=== PATIENT | male | born 1955 | race Caucasian/White ===

== ENCOUNTER 2020-02-11 08:12 | Outpatient (REF) | payer OTHER, SELFPAY ==
[2020-02-11 09:41] LABS: MANUAL DIFF FLAG NO
[2020-02-11 09:53] LABS: Basophils Absolute Auto 0.1 X10*3/uL (0.0-0.2); Basophils Percent Auto 0.9 % (0-2); Eosinophils Absolute Auto 0.2 X10*3/uL (0.0-0.4); Hematocrit 46.4 % (42-52); Hemoglobin 14.2 g/dl (14.0-18.0); Imm Gran Abs Auto 0.07 X10*3/uL (0.00-0.03); Imm Gran Pct Auto 0.9 % (0.0-0.4); Mean Corpuscular HGB Conc 30.6 g/dl (31.0-36.0); Mean Corpuscular Hemoglobin 24.7 pg (27.0-33.0); Mean Corpuscular Volume 80.6 fL (80-98); Mean Platelet Volume 11.6 fL (9.4-12.4); Monocytes Absolute Auto 0.5 X10*3/uL (0.1-1.2); Monocytes Percent Auto 6.5 % (2-11); Neutrophils Absolute Auto 5.2 X10*3/uL (2.0-8.3); Neutrophils Percent Auto 63.7 % (45-73); Platelet Count 355 X10*3/uL (160-400); Red Blood Count 5.76 X10*6/uL (4.60-5.80); Red Cell Distribution Width 15.9 % (11.0-16.0); White Blood Count 8.1 X10*3/uL (4.8-10.8)
[2020-02-11 10:17] LABS: Glucose Urine UA NEG (NEG); Leukocyte Esterase Urine NEG (NEG); Nitrite Urine NEG (NEG); Urine Blood NEG (NEG); Urine Ketones NEG (NEG); Urine Protein NEG (NEG-TRACE)
[2020-02-11 10:18] LABS: Alanine Aminotransferase 18 U/L (0-40); Albumin Level 4.6 g/dL (3.5-5.0); Alkaline Phosphatase 118 U/L (39-117); Anion Gap 15 (12-20); Aspartate Amino Transferase 18 U/L (5-37); Bilirubin Total 0.4 mg/dL (0.0-1.0); Blood Urea Nitrogen 15 mg/dL (9-16); Calcium 9.5 mg/dL (8.4-10.2); Carbon Dioxide 26 mmol/L (22-29); Chloride 104 mmol/L (96-108); Cholesterol 211 mg/dL; Estimated Glomerular Filt Rate > 60; Glucose Fasting 106 mg/dL (60-99); HDL Cholesterol 64 mg/dL; LDL Cholesterol Calculated 125 mg/dl; Potassium 4.6 mmol/l (3.3-5.1); Sodium 140 mmol/L (135-145); Total Protein 7.6 g/dL (6.5-8.0); Triglycerides 113 mg/dL
[2020-02-11 10:27] LABS: Appearance Urine CLEAR; Color Urine YELLOW
[2020-02-11 10:35] LABS: Estimated Average Glucose 111 mg/dL; Hemoglobin A1c % 5.5 %
[2020-02-11 10:38] LABS: Thyroid Stimulating Hormone 2.11 mIU/mL (0.32-4.0); Vitamin D 25-OH Total 35.8 ng/mL (>30)
[2020-02-11 10:47] LABS: Microalbumin Urine < 5.0 mg/L
[2020-02-11 11:18] LABS: RBC Urine 0 /HPF (0); Squamous Epithelial Cell Urine TRACE /LPF; WBC Urine 0 /HPF (0-4)
== END 2020-02-11 08:13 | disposition home or self-care (01) ==
LOC: HO.LAB 08:12
PROVIDERS: PCP Internal Medicine; Visit Provider Internal Medicine
DX: R79.89 Other specified abnormal findings of blood chemistry (principal)
CPT/HCPCS: 36415; 80053; 80061; 81003; 81015; 82043; 82306; 83036; 84443; 85025

== ENCOUNTER → 2020-09-10 09:25 | Outpatient (BNVA) | payer OTHER, SELFPAY | PROVIDERS: PCP Internal Medicine; Visit Provider Internal Medicine ==

== ENCOUNTER → 2020-09-25 09:37 | Outpatient (REF) | payer OTHER, SELFPAY | LOC: HO.SL 09:37 | PROVIDERS: PCP Internal Medicine; Visit Provider Internal Medicine | DX: G47.33 Obstructive sleep apnea (adult) (pediatric) (principal) | CPT/HCPCS: 95806 ==

== ENCOUNTER 2020-10-13 08:36 | Outpatient (REF) | payer OTHER, SELFPAY ==
[2020-10-13 09:15] LABS: MANUAL DIFF FLAG NO
[2020-10-13 09:21] LABS: Basophils Absolute Auto 0.1 X10*3/uL (0.0-0.2); Basophils Percent Auto 1.1 % (0-2); Eosinophils Absolute Auto 0.3 X10*3/uL (0.0-0.4); Eosinophils Percent Auto 4.4 % (0-4); Hematocrit 45.3 % (42-52); Hemoglobin 14.2 g/dl (14.0-18.0); Imm Gran Abs Auto 0.02 X10*3/uL (0.00-0.03); Imm Gran Pct Auto 0.4 % (0.0-0.4); Lymphocytes Absolute Auto 1.8 X10*3/uL (1.2-4.9); Lymphocytes Percent Auto 31.3 % (20-40); Mean Corpuscular HGB Conc 31.3 g/dl (31.0-36.0); Mean Corpuscular Hemoglobin 24.7 pg (27.0-33.0); Mean Corpuscular Volume 78.6 fL (80-98); Mean Platelet Volume 11.1 fL (9.4-12.4); Monocytes Absolute Auto 0.5 X10*3/uL (0.1-1.2); Monocytes Percent Auto 8.4 % (2-11); Neutrophils Absolute Auto 3.1 X10*3/uL (2.0-8.3); Neutrophils Percent Auto 54.4 % (45-73); Platelet Count 295 X10*3/uL (160-400); Red Blood Count 5.76 X10*6/uL (4.60-5.80); White Blood Count 5.7 X10*3/uL (4.8-10.8)
[2020-10-13 10:29] LABS: Potassium 4.7 mmol/L (3.3-5.1); Sodium 141 mmol/L (135-145)
[2020-10-13 10:30] LABS: Chloride 109 mmol/L (96-108)
[2020-10-13 10:42] LABS: Alanine Aminotransferase 19 U/L (0-40); Albumin Level 4.2 g/dL (3.5-5.0); Alkaline Phosphatase 97 U/L (39-117); Anion Gap 12 (12-20); Aspartate Amino Transferase 21 U/L (5-37); Bilirubin Total 0.6 mg/dL (0.0-1.0); Blood Urea Nitrogen 14 mg/dL (9-16); Calcium 9.1 mg/dL (8.4-10.2); Carbon Dioxide 25 mmol/L (22-29); Cholesterol 189 mg/dL; Estimated Glomerular Filt Rate > 60; Glucose Random 109 mg/dL (60-115); HDL Cholesterol 62 mg/dL; LDL Cholesterol Calculated 107 mg/dl; Total Protein 6.7 g/dL (6.5-8.0); Triglycerides 103 mg/dL
[2020-10-13 12:35] LABS: Prostate Specific Antigen < 0.05 ng/mL (<0.05-4.0)
== END 2020-10-13 08:37 | disposition home or self-care (01) ==
LOC: HO.LAB 08:36
PROVIDERS: PCP Internal Medicine; Visit Provider Internal Medicine Medical Oncology
DX: C61 Malignant neoplasm of prostate (principal); D68.59 Other primary thrombophilia; Z87.09 Personal history of other diseases of the respiratory system
CPT/HCPCS: 36415; 80053; 80061; 84153; 85025

== ENCOUNTER → 2020-11-12 13:13 | Outpatient (BNVA) | payer OTHER, SELFPAY | PROVIDERS: PCP Internal Medicine; Visit Provider Internal Medicine ==

== ENCOUNTER 2021-01-12 10:06 | Outpatient (REF) | payer OTHER, SELFPAY ==
[2021-01-12 10:59] LABS: MANUAL DIFF FLAG NO
[2021-01-12 11:10] LABS: Basophils Absolute Auto 0.1 X10*3/uL (0.0-0.2); Basophils Percent Auto 1.1 % (0-2); Eosinophils Absolute Auto 0.2 X10*3/uL (0.0-0.4); Eosinophils Percent Auto 3.3 % (0-4); Hematocrit 45.1 % (42-52); Hemoglobin 14.5 g/dl (14.0-18.0); Imm Gran Abs Auto 0.03 X10*3/uL (0.00-0.03); Imm Gran Pct Auto 0.5 % (0.0-0.4); Lymphocytes Absolute Auto 1.9 X10*3/uL (1.2-4.9); Lymphocytes Percent Auto 28.4 % (20-40); Mean Corpuscular HGB Conc 32.2 g/dl (31.0-36.0); Mean Corpuscular Hemoglobin 25.4 pg (27.0-33.0); Mean Platelet Volume 11.3 fL (9.4-12.4); Monocytes Absolute Auto 0.6 X10*3/uL (0.1-1.2); Neutrophils Absolute Auto 3.8 X10*3/uL (2.0-8.3); Neutrophils Percent Auto 57.7 % (45-73); Platelet Count 311 X10*3/uL (160-400); Red Blood Count 5.71 X10*6/uL (4.60-5.80); White Blood Count 6.6 X10*3/uL (4.8-10.8)
[2021-01-12 11:32] LABS: Alanine Aminotransferase 23 U/L (0-40); Albumin Level 4.4 g/dL (3.5-5.0); Alkaline Phosphatase 105 U/L (39-117); Anion Gap 13 (12-20); Aspartate Amino Transferase 23 U/L (5-37); Bilirubin Total 0.4 mg/dL (0.0-1.0); Blood Urea Nitrogen 13 mg/dL (9-16); Calcium 9.5 mg/dL (8.4-10.2); Carbon Dioxide 23 mmol/L (22-29); Chloride 108 mmol/L (96-108); Estimated Glomerular Filt Rate > 60; Glucose Random 105 mg/dL (60-115); Potassium 5.3 mmol/L (3.3-5.1); Sodium 139 mmol/L (135-145); Total Protein 7.3 g/dL (6.5-8.0)
[2021-01-12 11:52] LABS: Prostate Specific Antigen < 0.05 ng/mL (<0.05-4.0)
== END 2021-01-12 10:07 | disposition home or self-care (01) ==
LOC: HO.LAB 10:06
PROVIDERS: PCP Internal Medicine; Visit Provider Internal Medicine Medical Oncology
DX: Z12.5 Encounter for screening for malignant neoplasm of prostate (principal); C61 Malignant neoplasm of prostate
CPT/HCPCS: 36415; 80053; 84153; 85025

== ENCOUNTER 2021-09-12 07:55 | Outpatient (REF) | payer OTHER, SELFPAY ==
[2021-09-12 08:20] LABS: MANUAL DIFF FLAG NO
[2021-09-12 08:39] LABS: Basophils Absolute Auto 0.1 X10*3/uL (0.0-0.2); Eosinophils Absolute Auto 0.2 X10*3/uL (0.0-0.4); Eosinophils Percent Auto 3.7 % (0-4); Hematocrit 45.2 % (42.0-52.0); Hemoglobin 14.4 g/dl (14.0-18.0); Imm Gran Abs Auto 0.03 X10*3/uL (0.00-0.03); Imm Gran Pct Auto 0.5 % (0.0-0.4); Lymphocytes Absolute Auto 1.8 X10*3/uL (1.2-4.9); Lymphocytes Percent Auto 28.3 % (20-40); Mean Corpuscular HGB Conc 31.9 g/dl (31.0-36.0); Mean Corpuscular Hemoglobin 25.4 pg (27.0-33.0); Mean Corpuscular Volume 79.7 fL (80.0-98.0); Mean Platelet Volume 11.5 fL (9.4-12.4); Monocytes Absolute Auto 0.5 X10*3/uL (0.1-1.2); Monocytes Percent Auto 8.6 % (2-11); Neutrophils Absolute Auto 3.6 x10*3/uL (2.0-8.3); Neutrophils Percent Auto 57.9 % (45-73); Platelet Count 259 X10*3/uL (160-400); Red Blood Count 5.67 X10*6/uL (4.60-5.80); White Blood Count 6.3 X10*3/uL (4.8-10.8)
[2021-09-12 09:04] LABS: Alanine Aminotransferase 22 U/L (0-40); Albumin Level 4.1 g/dL (3.5-5.0); Alkaline Phosphatase 86 U/L (39-117); Anion Gap 10 (12-20); Aspartate Amino Transferase 18 U/L (5-37); Bilirubin Total 0.3 mg/dL (0.0-1.0); Blood Urea Nitrogen 16 mg/dL (9-16); Calcium 9.6 mg/dL (8.4-10.2); Carbon Dioxide 26 mmol/L (22-29); Chloride 109 mmol/L (96-108); Estimated Glomerular Filt Rate > 60; Glucose Random 110 mg/dL (60-115); Sodium 140 mmol/L (135-145); Total Protein 6.8 g/dL (6.5-8.0)
[2021-09-12 09:43] LABS: Prostate Specific Antigen < 0.05 ng/mL (<0.05-4.0)
== END 2021-09-12 07:56 | disposition home or self-care (01) ==
LOC: HO.LAB 07:55
PROVIDERS: PCP Internal Medicine; Visit Provider Internal Medicine Medical Oncology
DX: Z12.5 Encounter for screening for malignant neoplasm of prostate (principal); C61 Malignant neoplasm of prostate; K21.9 Gastro-esophageal reflux disease without esophagitis; I45.10 Unspecified right bundle-branch block
CPT/HCPCS: 36415; 80053; 84153; 85025

== ENCOUNTER 2022-03-15 08:23 | Outpatient (REF) | payer OTHER, SELFPAY ==
[2022-03-15 08:35] LABS: MANUAL DIFF FLAG NO
[2022-03-15 09:11] LABS: Basophils Absolute Auto 0.1 X10*3/uL (0.0-0.2); Basophils Percent Auto 0.9 % (0-2); Eosinophils Absolute Auto 0.2 X10*3/uL (0.0-0.4); Eosinophils Percent Auto 3.3 % (0-4); Hematocrit 47.1 % (42.0-52.0); Hemoglobin 14.6 g/dl (14.0-18.0); Imm Gran Abs Auto 0.04 X10*3/uL (0.00-0.03); Imm Gran Pct Auto 0.6 % (0.0-0.4); Lymphocytes Absolute Auto 2.1 X10*3/uL (1.2-4.9); Lymphocytes Percent Auto 31.3 % (20-40); Mean Corpuscular Hemoglobin 24.6 pg (27.0-33.0); Mean Corpuscular Volume 79.3 fL (80.0-98.0); Mean Platelet Volume 11.5 fL (9.4-12.4); Monocytes Absolute Auto 0.5 X10*3/uL (0.1-1.2); Monocytes Percent Auto 7.8 % (2-11); Neutrophils Absolute Auto 3.7 x10*3/uL (2.0-8.3); Neutrophils Percent Auto 56.1 % (45-73); Platelet Count 270 X10*3/uL (160-400); Red Blood Count 5.94 X10*6/uL (4.60-5.80); White Blood Count 6.6 X10*3/uL (4.8-10.8)
[2022-03-15 10:13] LABS: Prostate Specific Antigen < 0.10 ng/mL (<0.05-4.0)
== END 2022-03-15 08:24 | disposition home or self-care (01) ==
LOC: HO.LAB 08:23
PROVIDERS: PCP Internal Medicine; Visit Provider Internal Medicine Medical Oncology
DX: C61 Malignant neoplasm of prostate (principal)
CPT/HCPCS: 36415; 84153; 85025

== ENCOUNTER 2022-04-06 09:31 | Outpatient (REF) | payer OTHER, SELFPAY ==
[2022-04-06 09:53] LABS: MANUAL DIFF FLAG NO
[2022-04-06 10:35] LABS: Basophils Absolute Auto 0.1 X10*3/uL (0.0-0.2); Basophils Percent Auto 1.1 % (0-2); Eosinophils Absolute Auto 0.3 X10*3/uL (0.0-0.4); Eosinophils Percent Auto 4.2 % (0-4); Hematocrit 44.9 % (42.0-52.0); Hemoglobin 14.2 g/dl (14.0-18.0); Imm Gran Abs Auto 0.05 X10*3/uL (0.00-0.03); Imm Gran Pct Auto 0.8 % (0.0-0.4); Lymphocytes Absolute Auto 1.6 X10*3/uL (1.2-4.9); Lymphocytes Percent Auto 25.4 % (20-40); Mean Corpuscular HGB Conc 31.6 g/dl (31.0-36.0); Mean Corpuscular Hemoglobin 24.7 pg (27.0-33.0); Mean Corpuscular Volume 78.1 fL (80.0-98.0); Mean Platelet Volume 11.1 fL (9.4-12.4); Monocytes Absolute Auto 0.6 X10*3/uL (0.1-1.2); Neutrophils Absolute Auto 3.7 x10*3/uL (2.0-8.3); Neutrophils Percent Auto 59.5 % (45-73); Platelet Count 312 X10*3/uL (160-400); Red Blood Count 5.75 X10*6/uL (4.60-5.80); Red Cell Distribution Width 15.3 % (11.0-16.0); White Blood Count 6.2 X10*3/uL (4.8-10.8)
[2022-04-06 15:25] LABS: Folate 6.7 ng/mL (> or = 4.0); Vitamin B12 349 pg/mL (200-900)
[2022-04-06 15:54] LABS: Alanine Aminotransferase 21 U/L (0-40); Albumin Level 4.3 g/dL (3.5-5.0); Alkaline Phosphatase 98 U/L (39-117); Anion Gap 14 (12-20); Aspartate Amino Transferase 22 U/L (5-37); Bilirubin Total 0.4 mg/dL (0.0-1.0); Blood Urea Nitrogen 16 mg/dL (9-16); Calcium 9.4 mg/dL (8.4-10.2); Carbon Dioxide 25 mmol/L (22-29); Chloride 109 mmol/L (96-108); Cholesterol 192 mg/dL; Estimated Glomerular Filt Rate > 60; Glucose Fasting 112 mg/dL (60-99); HDL Cholesterol 58 mg/dL; LDL Cholesterol Calculated 117 mg/dl; Potassium 5.5 mmol/L (3.3-5.1); Sodium 142 mmol/L (135-145); Thyroid Stimulating Hormone 1.03 uIU/mL (0.32-4.0); Triglycerides 85 mg/dL; Vitamin D 25-OH Total 25.1 ng/mL (>30)
== END 2022-04-06 09:32 | disposition home or self-care (01) ==
LOC: HO.LAB 09:31
PROVIDERS: PCP Internal Medicine; Visit Provider Internal Medicine
DX: M17.0 Bilateral primary osteoarthritis of knee (principal); G47.33 Obstructive sleep apnea (adult) (pediatric); E66.09 Other obesity due to excess calories
CPT/HCPCS: 36415; 80053; 80061; 82306; 82607; 82746; 84443; 85025

== ENCOUNTER 2022-05-17 09:18 | Outpatient (REF) | payer OTHER, SELFPAY ==
[2022-05-17 10:37] LABS: Anion Gap 14 (12-20); Blood Urea Nitrogen 19 mg/dL (9-16); Calcium 9.4 mg/dL (8.4-10.2); Carbon Dioxide 27 mmol/L (22-29); Chloride 103 mmol/L (96-108); Estimated Glomerular Filt Rate > 60; Glucose Random 152 mg/dL (60-115); Potassium 4.2 mmol/L (3.3-5.1); Sodium 140 mmol/L (135-145)
[2022-05-17 10:51] LABS: Erythrocyte Sedimentation Rate 5 MM/HR (0-15)
== END 2022-05-17 09:19 | disposition home or self-care (01) ==
LOC: HO.LAB 09:18
PROVIDERS: PCP Internal Medicine; Visit Provider Internal Medicine
DX: I10 Essential (primary) hypertension (principal)
CPT/HCPCS: 36415; 80048; 85652

== ENCOUNTER 2022-09-07 10:26 | Outpatient (REF) | payer MEDICARE, OTHER, SELFPAY ==
[2022-09-07 10:38] LABS: MANUAL DIFF FLAG NO
[2022-09-07 11:36] LABS: Basophils Absolute Auto 0.1 X10*3/uL (0.0-0.2); Basophils Percent Auto 1.1 % (0-2); Eosinophils Absolute Auto 0.2 X10*3/uL (0.0-0.4); Eosinophils Percent Auto 2.6 % (0-4); Hematocrit 45.9 % (42.0-52.0); Hemoglobin 14.5 g/dl (14.0-18.0); Imm Gran Abs Auto 0.04 X10*3/uL (0.00-0.03); Imm Gran Pct Auto 0.6 % (0.0-0.4); Lymphocytes Absolute Auto 1.6 X10*3/uL (1.2-4.9); Lymphocytes Percent Auto 24.1 % (20-40); Mean Corpuscular HGB Conc 31.6 g/dl (31.0-36.0); Mean Corpuscular Hemoglobin 24.7 pg (27.0-33.0); Mean Corpuscular Volume 78.1 fL (80.0-98.0); Mean Platelet Volume 11.4 fL (9.4-12.4); Monocytes Absolute Auto 0.6 X10*3/uL (0.1-1.2); Monocytes Percent Auto 9.7 % (2-11); Neutrophils Percent Auto 61.9 % (45-73); Platelet Count 309 X10*3/uL (160-400); Red Blood Count 5.88 X10*6/uL (4.60-5.80); Red Cell Distribution Width 15.7 % (11.0-16.0); White Blood Count 6.4 X10*3/uL (4.8-10.8)
[2022-09-07 11:58] LABS: Alanine Aminotransferase 31 U/L (0-40); Albumin Level 4.3 g/dL (3.5-5.0); Alkaline Phosphatase 89 U/L (39-117); Anion Gap 14 (12-20); Aspartate Amino Transferase 28 U/L (5-37); Bilirubin Total 0.3 mg/dL (0.0-1.0); Blood Urea Nitrogen 15 mg/dL (9-16); Calcium 9.6 mg/dL (8.4-10.2); Carbon Dioxide 26 mmol/L (22-29); Chloride 106 mmol/L (96-108); Estimated Glomerular Filt Rate > 60; Glucose Random 85 mg/dL (60-115); Potassium 4.6 mmol/L (3.3-5.1); Sodium 141 mmol/L (135-145)
[2022-09-07 12:23] LABS: Prostate Specific Antigen < 0.10 ng/mL (<0.05-4.0)
== END 2022-09-07 10:27 | disposition home or self-care (01) ==
LOC: HO.LAB 10:26
PROVIDERS: PCP Internal Medicine; Visit Provider Internal Medicine Medical Oncology
DX: C61 Malignant neoplasm of prostate (principal); K21.9 Gastro-esophageal reflux disease without esophagitis; E66.9 Obesity, unspecified; Z87.09 Personal history of other diseases of the respiratory system; Z12.5 Encounter for screening for malignant neoplasm of prostate
CPT/HCPCS: 36415; 80053; 84153; 85025

== ENCOUNTER 2022-09-27 10:59 | Emergency (ER) | payer MEDICARE, OTHER, SELFPAY ==
--- NOTE | ~2022-09-27 | CT_ITS ---
EXAMINATION: CT HEAD WITHOUT CONTRAST CLINICAL INFORMATION: Fall. Blood thinning medicine. COMPARISON: None available. TECHNIQUE: Contiguous axial imaging was performed from the skull base to vertex without intravenous administration of contrast. This CT examination was performed using dose optimization techniques as appropriate, variously including the following: *Automated exposure control *Adjustment of mA and/or kV according to patient size (this includes techniques or standardized protocols for targeted exams where dose is matched to indication/reason for exam; i.e. extremities or head) *Use of iterative reconstruction technique DLP: 686 mGy-cm FINDINGS: No evidence of an extra-axial collection. No evidence of intra-axial or extra-axial hemorrhage. The ventricles and extra-axial CSF spaces are appropriate. Wise-white matter differentiation is normal. No mass, mass effect or infarct. No skull fracture. Soft tissue opacification of the bilateral mastoid air cells, left greater than right.. Middle ears and paranasal sinuses are clear. CT/CT head/brain wo IV con IMPRESSION: No acute findings. Soft tissue opacification of the bilateral mastoid air cells.
[2022-09-27 11:02] VITALS: BP 196/81; PULSE 63; RESP 19; TEMP 36.6; O2SAT 98; BMI 30.8
--- NOTE | 2022-09-27 11:08 | ED.HEATRA ---
HPI - Head Injury General Chief complaint: Head Injury Stated complaint: Fall T-1/Head inj on thinners Time Seen by Provider: 09/27/22 13:12 Source: patient Mode of arrival: ambulatory Limitations: no limitations History of Present Illness HPI Narrative: Was the emergency room complaining of slight headache after sustaining a fall yesterday. 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 Patient states he has been having mild headaches. Patient called his primary care physician and because he is on Eliquis, he was instructed to come to the emergency room for further evaluation. Patient denies nausea vomiting diarrhea, no vision changes. Related Data Home Medications Medication Instructions Recorded Confirmed apixaban 5 mg tablet 5 mg PO BID 09/10/20 09/27/22 cetirizine 10 mg tablet 10 mg PO DAILY 09/10/20 09/27/22 cholecalciferol (vitamin D3) 25 25 mcg PO DAILY 09/10/20 09/27/22 mcg (1,000 unit) capsule fluticasone 100 mcg-salmeterol 50 1 ea PO BID 09/10/20 09/27/22 mcg/dose blistr powdr for inhalation montelukast 10 mg tablet 10 mg PO DAILY 09/10/20 09/27/22 celecoxib 200 mg capsule (Celebrex) 200 mg PO DAILY 09/27/22 09/27/22 hydrochlorothiazide 50 mg tablet 50 mg PO QAM 09/27/22 09/27/22 multivitamin 1 tab PO DAILY 09/27/22 09/27/22 omeprazole 20 mg tablet,delayed 20 mg PO DAILY 09/27/22 09/27/22 release Allergies Allergy/AdvReac Type Severity Reaction Status Date / Time No Known Allergies Allergy Verified 09/27/22 11:02 [No Known Allergies*] Review of Systems Review of Systems: Constitutional : No Weight loss, No Fever, No Chills, No Night Sweats, No Fatigue, No Malaise ENT/Mouth : No Hearing loss, No Ear Pain, No Nasal Congestion, No Sinus Pain, No Hoarseness, No sore throat, No Rhinorrhea, No Swallowing Difficulty Eyes: No Eye Pain, No Swelling, No Redness, No Foreign Body, No Discharge, No Vision Changes Cardiovascular : No Chest Pain, No SOB, No Dyspnea on Exertion, No Orthopnea, No Edema, No Palpitations Respiratory : No Cough, No Sputum, No Wheezing, No Smoke Exposure, No Dyspnea Gastrointestinal : No Nausea, No Vomiting, No Diarrhea, No Constipation, No abdominal Pain, No Hematochezia, No Melena Genitourinary : no irregular bleeding, No Dysuria, No Urinary Frequency, No Hematuria, No Urinary Incontinence, No Urgency, No Flank Pain, No Urinary Flow Changes, No Hesitancy Musculoskeletal : No joint pain, No Myalgias, No Joint Swelling Skin : Small abrasion/scratch to the right side of the head/tenriism No Skin Lesions, No rash Neuro : No Weakness, No Numbness, No Paresthesias, No Loss of Consciousness, No Dizziness, complaining of mild Headache Psych : No Anxiety/Panic, No Depression, No SI/HI/AH/VH, No Social Issues, Heme/Lymph: No Bruising, No Bleeding,No Lymphadenopathy Endocrine : No Polyuria, No Polydipsia, No Temperature Intolerance PMFSH Past Medical History Medical History Allergic rhinitis Asthma CHRISTA (obstructive sleep apnea) Physical Exam Vital Signs: Vital Signs: Last Vital Signs Temp 98 F 09/27/22 11:02 Pulse 63 09/27/22 11:02 Resp 19 09/27/22 11:02 BP 196/81 H 09/27/22 11:02 Pulse Ox 98 09/27/22 11:02 O2 Del Method Room Air 09/27/22 11:02 BMI result Body Mass Index 30.8 Const: Other: Appearance: Alert. Oriented X3. No acute distress. Eyes: Pupils equal, round and reactive to light. ENT: Pharynx normal. Neck: Normal inspection. Neck supple. No lymph nodes noted. No crepitus CVS: Normal heart rate and rhythm. Pulses normal. Normal S1 and S2 Respiratory: No respiratory distress. Breath sounds normal. No Wheezing. No rales Abdomen: Soft and nontender. No rigidity. No distention. Skin: 2 cm scratch to the right tenriism, being controlled, superficial, Skin warm and dry. Normal skin color. Normal skin turgor. Extremities: No lower extremity edema. No Lacerations. No Rash Neuro: Oriented X 3. No motor deficit. No sensory deficit. Moving all extremities. No slurred speech. 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 Denies neck pain or LOC Ambulating w/steady gait Head CT ordered Full HPI, ROS and PE to be performed by primary ED provider. Medical Decision Making Medical Decision Making [facility] Narrative: -my interpretation of CT scan of the head: No intracranial bleed -patient states he has a very mild headache, declined any pain medication, states he feels fairly well. -I discussed with the patient and likely he has a mild concussion Radiology Impression Discussion of test interpretation with radiology: I have reviewed the radiologist's reading. Radiologist Impression: FINDINGS: No evidence of an extra-axial collection. No evidence of intra-axial or extra-axial hemorrhage. The ventricles and extra-axial CSF spaces are appropriate. Wise-white matter differentiation is normal. No mass, mass effect or infarct. No skull fracture. Soft tissue opacification of the bilateral mastoid air cells, left greater than right.. Middle ears and paranasal sinuses are clear. ? CT/CT head/brain wo IV con IMPRESSION: No acute findings. Soft tissue opacification of the bilateral mastoid air cells. Discharge Plan Discharge Clinical Impression: Concussion, Fall Patient Disposition: Home, Self-Care Instructions: Concussion (ED) Additional Instructions: Please follow-up with your primary care physician tomorrow. If you have any worsening or new symptoms, please return to the emergency room or call 911 Prescriptions: No Action multivitamin Tablet 1 tab PO DAILY celecoxib [Celebrex] 200 mg Capsule 200 mg PO DAILY hydrochlorothiazide 50 mg tablet 50 mg PO QAM omeprazole 20 mg Tablet,Delayed Release (Dr/Ec) 20 mg PO DAILY cetirizine 10 mg tablet 10 mg PO DAILY Eliquis 5 mg tablet 5 mg PO BID montelukast 10 mg tablet 10 mg PO DAILY fluticasone propion-salmeterol 100-50 mcg/dose blister with device 1 ea PO BID cholecalciferol (vitamin D3) 25 mcg (1,000 unit) capsule 25 mcg PO DAILY
--- NOTE | 2022-09-27 13:13 | PHA.MEDREC ---
Pharmacy Consult ? Medication Reconciliation Pharmacy has completed the medication reconciliation. List sent from Dr Francisco office.
[2022-09-27 13:25] VITALS: BP 147/92; PULSE 54; RESP 18; TEMP 36.4; O2SAT 98
--- NOTE | 2022-09-27 13:34 | PC.NURSE ---
patient a&ox3, pt states he fell yesterday and pcp requested he come in because he was on thinners, pt had a ct while waiting in the [facility], pt states he has a mild headache 2/10 which is relieved when he takes po medication at home. pt was seen/evaluated by provider and being discharged.
== END 2022-09-27 13:36 | disposition home or self-care (01) ==
LOC: HO.ED 13:26
PROVIDERS: Emergency Provider Emergency Medicine; PCP Internal Medicine
DX: S06.0X0A Concussion without loss of consciousness, initial encounter (principal); W01.198A Fall on same level from slipping, tripping and stumbling with subsequent striking against other object, initial encounter; Y93.79 Activity, other specified sports and athletics; Y92.89 Other specified places as the place of occurrence of the external cause; Y99.8 Other external cause status; R51.9 Headache, unspecified
CPT/HCPCS: 70450; 99284

== ENCOUNTER 2022-11-25 11:00 | Outpatient (RCR) | payer MEDICARE, OTHER, SELFPAY | END 2023-02-11 11:33 | disposition home or self-care (01) | LOC: HO.PT 11:00 | PROVIDERS: PCP Internal Medicine; Visit Provider Orthopaedic Surgery | DX: Z98.890 Other specified postprocedural states (principal) | CPT/HCPCS: 97110; 97140; 97161; 97530 ==

== ENCOUNTER 2022-12-22 07:37 | Outpatient (REF) | payer MEDICARE, OTHER, SELFPAY ==
[2022-12-22 07:58] LABS: MANUAL DIFF FLAG NO
[2022-12-22 08:20] LABS: Basophils Absolute Auto 0.1 X10*3/uL (0.0-0.2); Basophils Percent Auto 1.2 % (0-2); Eosinophils Absolute Auto 0.2 X10*3/uL (0.0-0.4); Eosinophils Percent Auto 2.8 % (0-4); Hematocrit 46.2 % (42.0-52.0); Hemoglobin 15.1 g/dl (14.0-18.0); Imm Gran Abs Auto 0.02 X10*3/uL (0.00-0.03); Imm Gran Pct Auto 0.3 % (0.0-0.4); Lymphocytes Absolute Auto 1.8 X10*3/uL (1.2-4.9); Lymphocytes Percent Auto 26.3 % (20-40); Mean Corpuscular HGB Conc 32.7 g/dl (31.0-36.0); Mean Corpuscular Hemoglobin 25.1 pg (27.0-33.0); Mean Corpuscular Volume 76.9 fL (80.0-98.0); Mean Platelet Volume 10.8 fL (9.4-12.4); Monocytes Absolute Auto 0.6 X10*3/uL (0.1-1.2); Monocytes Percent Auto 8.8 % (2-11); Neutrophils Absolute Auto 4.1 x10*3/uL (2.0-8.3); Neutrophils Percent Auto 60.6 % (45-73); Platelet Count 290 X10*3/uL (160-400); Red Blood Count 6.01 X10*6/uL (4.60-5.80); Red Cell Distribution Width 15.5 % (11.0-16.0); White Blood Count 6.8 X10*3/uL (4.8-10.8)
[2022-12-22 09:01] LABS: Alanine Aminotransferase 30 U/L (0-40); Albumin Level 4.1 g/dL (3.5-5.0); Alkaline Phosphatase 82 U/L (39-117); Anion Gap 13 (12-20); Aspartate Amino Transferase 30 U/L (5-37); Bilirubin Total 0.3 mg/dL (0.0-1.0); Blood Urea Nitrogen 15 mg/dL (9-16); Calcium 9.4 mg/dL (8.4-10.2); Carbon Dioxide 26 mmol/L (22-29); Chloride 105 mmol/L (96-108); Cholesterol 222 mg/dL (<200); Estimated Glomerular Filt Rate > 60; Glucose Fasting 110 mg/dL (60-99); HDL Cholesterol 57 mg/dL (>40); LDL Cholesterol Calculated 144 mg/dL (<100); Potassium 3.8 mmol/L (3.3-5.1); Sodium 140 mmol/L (135-145); Triglycerides 105 mg/dL (<150)
[2022-12-22 09:22] LABS: Prostate Specific Antigen < 0.10 ng/mL (<0.05-4.0)
== END 2022-12-22 07:38 | disposition home or self-care (01) ==
LOC: HO.LAB 07:37
PROVIDERS: Internal Medicine; PCP Internal Medicine Medical Oncology; Visit Provider Internal Medicine Medical Oncology
DX: Z12.5 Encounter for screening for malignant neoplasm of prostate (principal); C61 Malignant neoplasm of prostate; E66.3 Overweight; I10 Essential (primary) hypertension; J45.20 Mild intermittent asthma, uncomplicated; K21.9 Gastro-esophageal reflux disease without esophagitis
CPT/HCPCS: 36415; 80053; 80061; 84153; 85025

== ENCOUNTER 2023-06-20 07:44 | Outpatient (REF) | payer MEDICARE, OTHER, SELFPAY ==
[2023-06-20 08:03] LABS: MANUAL DIFF FLAG NO
[2023-06-20 08:41] LABS: Basophils Absolute Auto 0.1 X10*3/uL (0.0-0.2); Eosinophils Absolute Auto 0.4 X10*3/uL (0.0-0.4); Eosinophils Percent Auto 3.9 % (0-4); Hemoglobin 14.9 g/dl (14.0-18.0); Imm Gran Abs Auto 0.04 X10*3/uL (0.00-0.03); Imm Gran Pct Auto 0.4 % (0.0-0.4); Lymphocytes Absolute Auto 2.1 X10*3/uL (1.2-4.9); Lymphocytes Percent Auto 23.3 % (20-40); Mean Corpuscular HGB Conc 31.7 g/dl (31.0-36.0); Mean Corpuscular Hemoglobin 24.7 pg (27.0-33.0); Mean Corpuscular Volume 77.8 fL (80.0-98.0); Mean Platelet Volume 11.8 fL (9.4-12.4); Monocytes Absolute Auto 0.7 X10*3/uL (0.1-1.2); Monocytes Percent Auto 7.2 % (2-11); Neutrophils Absolute Auto 5.8 x10*3/uL (2.0-8.3); Neutrophils Percent Auto 64.2 % (45-73); Platelet Count 278 X10*3/uL (160-400); Red Blood Count 6.04 X10*6/uL (4.60-5.80); Red Cell Distribution Width 16.2 % (11.0-16.0)
[2023-06-20 09:25] LABS: Alanine Aminotransferase 25 U/L (0-40); Albumin Level 4.2 g/dL (3.5-5.0); Alkaline Phosphatase 84 U/L (39-117); Anion Gap 13 (12-20); Aspartate Amino Transferase 24 U/L (5-37); Bilirubin Total 0.3 mg/dL (0.0-1.0); Blood Urea Nitrogen 15 mg/dL (9-16); Calcium 9.5 mg/dL (8.4-10.2); Carbon Dioxide 29 mmol/L (22-29); Chloride 104 mmol/L (96-108); Cholesterol 202 mg/dL (<200); Estimated Glomerular Filt Rate > 60; Glucose Fasting 115 mg/dL (60-99); HDL Cholesterol 61 mg/dL (>40); LDL Cholesterol Calculated 126 mg/dL (<100); Potassium 3.9 mmol/L (3.3-5.1); Sodium 142 mmol/L (135-145); Total Protein 7.3 g/dL (6.5-8.0); Triglycerides 76 mg/dL (<150)
[2023-06-20 09:47] LABS: Prostate Specific Antigen < 0.10 ng/mL (<0.05-4.0)
== END 2023-06-20 07:45 | disposition home or self-care (01) ==
LOC: HO.LAB 07:44
PROVIDERS: Absent Provider Internal Medicine; PCP Internal Medicine; Referring Provider Physician Assistant; Visit Provider Internal Medicine Medical Oncology
DX: I10 Essential (primary) hypertension (principal); E78.00 Pure hypercholesterolemia, unspecified; C61 Malignant neoplasm of prostate; E66.3 Overweight; Z12.5 Encounter for screening for malignant neoplasm of prostate
CPT/HCPCS: 36415; 80053; 80061; 84153; 85025

== ENCOUNTER 2023-11-11 08:35 | Outpatient (REF) | payer MEDICARE, OTHER, SELFPAY ==
[2023-11-11 08:52] LABS: MANUAL DIFF FLAG NO
[2023-11-11 09:31] LABS: Basophils Absolute Auto 0.1 X10*3/uL (0.0-0.2); Basophils Percent Auto 1.2 % (0-2); Eosinophils Absolute Auto 0.3 X10*3/uL (0.0-0.4); Eosinophils Percent Auto 3.6 % (0-4); Hematocrit 48.8 % (42.0-52.0); Hemoglobin 15.7 g/dl (14.0-18.0); Imm Gran Abs Auto 0.04 X10*3/uL (0.00-0.03); Imm Gran Pct Auto 0.5 % (0.0-0.4); Lymphocytes Absolute Auto 1.9 X10*3/uL (1.2-4.9); Lymphocytes Percent Auto 25.4 % (20-40); Mean Corpuscular HGB Conc 32.2 g/dl (31.0-36.0); Mean Corpuscular Hemoglobin 25.2 pg (27.0-33.0); Mean Corpuscular Volume 78.2 fL (80.0-98.0); Mean Platelet Volume 11.7 fL (9.4-12.4); Monocytes Absolute Auto 0.6 X10*3/uL (0.1-1.2); Monocytes Percent Auto 8.5 % (2-11); Neutrophils Absolute Auto 4.5 x10*3/uL (2.0-8.3); Neutrophils Percent Auto 60.8 % (45-73); Platelet Count 281 X10*3/uL (160-400); Red Blood Count 6.24 X10*6/uL (4.60-5.80); Red Cell Distribution Width 16.8 % (11.0-16.0); White Blood Count 7.4 X10*3/uL (4.8-10.8)
[2023-11-11 10:30] LABS: Alanine Aminotransferase 27 U/L (0-40); Albumin Level 4.4 g/dL (3.5-5.0); Alkaline Phosphatase 90 U/L (39-117); Anion Gap 15 (12-20); Aspartate Amino Transferase 31 U/L (5-37); Bilirubin Total 0.6 mg/dL (0.0-1.0); Blood Urea Nitrogen 14 mg/dL (9-16); Calcium 9.6 mg/dL (8.4-10.2); Carbon Dioxide 26 mmol/L (22-29); Chloride 104 mmol/L (96-108); Cholesterol 245 mg/dL (<200); Estimated Glomerular Filt Rate > 60; Glucose Fasting 107 mg/dL (60-99); HDL Cholesterol 59 mg/dL (>40); LDL Cholesterol Calculated 153 mg/dL (<100); Potassium 4.6 mmol/L (3.3-5.1); Sodium 140 mmol/L (135-145); Total Protein 7.8 g/dL (6.5-8.0); Triglycerides 168 mg/dL (<150)
[2023-11-11 10:45] LABS: Vitamin D 25-OH Total 54.4 ng/mL (>30)
[2023-11-11 11:31] LABS: Prostate Specific Antigen < 0.10 ng/mL (<0.05-4.0); Vitamin B12 1109 pg/mL (200-900)
== END 2023-11-11 08:36 | disposition home or self-care (01) ==
LOC: HO.LAB 08:35
PROVIDERS: PCP Internal Medicine; Visit Provider Internal Medicine Medical Oncology
DX: C61 Malignant neoplasm of prostate (principal); K21.9 Gastro-esophageal reflux disease without esophagitis; I45.10 Unspecified right bundle-branch block; E66.9 Obesity, unspecified; D68.59 Other primary thrombophilia; E55.9 Vitamin D deficiency, unspecified; E53.8 Deficiency of other specified B group vitamins; Z12.5 Encounter for screening for malignant neoplasm of prostate
CPT/HCPCS: 36415; 80053; 80061; 82306; 82607; 84153; 85025

== ENCOUNTER 2024-02-14 07:37 | Outpatient (REF) | payer MEDICARE, OTHER, SELFPAY ==
[2024-02-14 07:53] LABS: MANUAL DIFF FLAG NO
[2024-02-14 08:34] LABS: Basophils Absolute Auto 0.1 X10*3/uL (0.0-0.2); Eosinophils Absolute Auto 0.2 X10*3/uL (0.0-0.4); Eosinophils Percent Auto 3.5 % (0-4); Hematocrit 46.2 % (42.0-52.0); Hemoglobin 14.8 g/dl (14.0-18.0); Imm Gran Abs Auto 0.02 X10*3/uL (0.00-0.03); Imm Gran Pct Auto 0.3 % (0.0-0.4); Lymphocytes Absolute Auto 1.6 X10*3/uL (1.2-4.9); Lymphocytes Percent Auto 28.2 % (20-40); Mean Corpuscular Hemoglobin 25.2 pg (27.0-33.0); Mean Corpuscular Volume 78.7 fL (80.0-98.0); Mean Platelet Volume 11.5 fL (9.4-12.4); Monocytes Absolute Auto 0.5 X10*3/uL (0.1-1.2); Monocytes Percent Auto 8.1 % (2-11); Neutrophils Absolute Auto 3.4 x10*3/uL (2.0-8.3); Neutrophils Percent Auto 58.9 % (45-73); Platelet Count 276 X10*3/uL (160-400); Red Blood Count 5.87 X10*6/uL (4.60-5.80); Red Cell Distribution Width 15.7 % (11.0-16.0); White Blood Count 5.8 X10*3/uL (4.8-10.8)
[2024-02-14 09:26] LABS: Alanine Aminotransferase 33 U/L (0-40); Albumin Level 4.2 g/dL (3.5-5.0); Alkaline Phosphatase 82 U/L (39-117); Anion Gap 13 (12-20); Aspartate Amino Transferase 29 U/L (5-37); Bilirubin Total 0.5 mg/dL (0.0-1.0); Blood Urea Nitrogen 16 mg/dL (9-16); Calcium 9.4 mg/dL (8.4-10.2); Carbon Dioxide 27 mmol/L (22-29); Chloride 107 mmol/L (96-108); Cholesterol 190 mg/dL (<200); Estimated Glomerular Filt Rate 59; Glucose Fasting 112 mg/dL (60-99); HDL Cholesterol 61 mg/dL (>40); LDL Cholesterol Calculated 113 mg/dL (<100); Potassium 4.2 mmol/L (3.3-5.1); Sodium 143 mmol/L (135-145); Triglycerides 82 mg/dL (<150)
[2024-02-14 09:57] LABS: Prostate Specific Antigen < 0.10 ng/mL (<0.05-4.0)
== END 2024-02-14 07:38 | disposition home or self-care (01) ==
LOC: HO.LAB 07:37
PROVIDERS: PCP Internal Medicine; Visit Provider Internal Medicine Medical Oncology
DX: C61 Malignant neoplasm of prostate (principal); E66.9 Obesity, unspecified; Z12.5 Encounter for screening for malignant neoplasm of prostate
CPT/HCPCS: 36415; 80053; 80061; 84153; 85025

== ENCOUNTER 2024-05-02 10:27 | Outpatient (AMB) | payer MEDICARE, OTHER, SELFPAY ==
--- NOTE | 2024-05-02 10:40 | MHC.PC.OV ---
Vital Signs 05/02/24 10:47 Height 5 ft 5.25 in Weight 197 lb BMI 32.5 BP 106/62 Blood Pressure Location Rt brachial Pulse 50 Pulse Source Pulse Oximeter Temp 97.2 F Pulse Oximetry (%) 98 Intake Visit Reasons: pain in left ear by jaw Intake Note: her for pain in left ear and jaw area has tried saline drops and that has helped sometimes hard to ear Allergies No Known Allergies [No Known Allergies*] Allergy (Verified 05/02/24 11:09) Medication List - Last Reconciled 05/02/24 by George Rodriguez MD albuterol sulfate 90 mcg/actuation 1 inh inhalation QID PRN apixaban (Eliquis) 5 mg PO BID celecoxib (Celebrex) 200 mg PO DAILY cholecalciferol (vitamin D3) 25 mcg PO DAILY fluticasone propion-salmeterol 100-50 mcg/dose 1 ea PO BID fluticasone propionate 50 mcg/actuation (Flonase Allergy Relief) 1 spray intranasal DAILY hydrochlorothiazide 50 mg PO QAM loratadine-pseudoephedrine 10-240 mg ER (Claritin-D 24 Hour) 1 tab PO DAILY montelukast 10 mg PO DAILY multivitamin 1 tab PO DAILY omeprazole 20 mg PO DAILY [facility] Medical History (Updated 05/02/24 @ 11:10 by George Rodriguez MD) Left leg DVT Prostate cancer Allergic rhinitis Asthma CHRISTA (obstructive sleep apnea) Social History Alcohol intake: current Alcohol type: beer Physical exam (Primary Care) Vital Signs: Last Vital Signs Temp 97.2 F 05/02/24 10:47 Pulse 50 05/02/24 10:47 BP 106/62 05/02/24 10:47 Pulse Ox 98 05/02/24 10:47 BMI result Body Mass Index 32.5 Coding Level of Care Code New Pt Level 4 (21978) Complex EM visit Add On G2211 Diagnoses Prostate cancer C61 Left leg DVT I82.402 Allergic rhinitis J30.9 Assessment & Plan Assessment & Plan (1) Prostate cancer: Code(s): C61 - Malignant neoplasm of prostate Category: Medical Plan: Patient underwent a prostatectomy and radiation. PSA will be checked. (2) Left leg DVT: Code(s): I82.402 - Acute embolism and thrombosis of unspecified deep veins of left lower extremity Category: Medical Plan: Pt had two episodes of DVT in the same extremity. Sees Dr Miller. Anticoagulation for an indefinite period. (3) Allergic rhinitis: Code(s): J30.9 - Allergic rhinitis, unspecified Category: Medical Plan: No further abx needed. Patient was given a script for SIngulair, Claritin D and flonase. To use the medications consistently. Plan History of Present Illness The patient is a 68-year-old male presenting with complaints of nasal congestion and mandibular pain. The congestion has persisted for approximately one and a half months, prompting calls to the previous provider and resulting in prescriptions of a Z pack and unspecified antibiotics, neither of which alleviated symptoms. The patient also reports pain beneath the mandible, initially suspected to be dental in origin. A dental x-ray found no infection. The patient takes regular allergy medications, including Singulair. Congestion persists despite management, including a saline rinse, although the patient does not use nasal spray. 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 Concerning past medical history, the patient underwent radiation therapy for prostate diagnosed in 2018, with ongoing bowel changes as a sequela. The patient also has a history of knee issues leading to arthroscopic surgeries on both knees. 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 - No reports of substance use. Review of Systems - Respiratory: Reports ongoing nasal congestion. - Musculoskeletal: Reports pain in the mandible area. - Hematologic: No discussion of bleeding or clotting issues beyond DVT. Physical Exam General: Cooperative and healthy appearing Nutritional Appearance: Well nourished Orientation/consciousness: Patient oriented x3 Limitations: No limitations Head: Normal to inspection General: Appearance normal, both eyes and all related structures Neck: Normal visual inspection Chest: Normal palpation of entire chest wall Respiratory: Normal respiratory effort Neurology: Patient oriented x3 Results Plan - Investigate and evaluate persistent nasal congestion. - Address mandibular pain by considering further dental or ENT consultation if pain persists. - Continue management for DVT with Apixaban. - Ensure adherence to allergy management regimen, consider additional options if congestion persists. - Regular follow-up with oncology for post-radiation therapy colorectal cancer surveillance. Patient was informed and verbally consented to the use of an ambient scribe for clinic note documentation during this visit. Discussion Notes During the consultation, I discussed the ongoing nasal congestion and mandibular pain with the patient, emphasizing the importance of monitoring these symptoms and considering additional diagnostic steps if current treatments do not result in improvement. I reaffirmed the need for lifelong anticoagulation to prevent future thrombotic events related to previous deep vein thrombosis. We reviewed his current medication regimen and discussed possible modifications to improve symptom control. Follow-ups with specialists such as a laborer rags and oncologist were acknowledged, and we considered the patient's past medical experiences to guide ongoing care. Patient Instructions - Continue taking Apixaban as prescribed for DVT. - Utilize allergy medications diligently and consider nasal sprays as previously untried. - Monitor symptoms of nasal congestion and mandibular pain; seek further advice if no improvement. - Follow up with scheduled oncology and hematology appointments. - Report any new or worsening symptoms promptly. Medications: New fluticasone propionate 50 mcg/actuation (Flonase Allergy Relief) administer into each nostril 1 spray intranasal DAILY 9.9 mL 1RF loratadine-pseudoephedrine 10-240 mg ER (Claritin-D 24 Hour) 1 tab PO DAILY 90 tabs 0RF
[2024-05-02 10:47] VITALS: BP 106/62; PULSE 50; TEMP 36.2; O2SAT 98; BMI 32.5
== END 2024-05-02 11:07 | disposition home or self-care (01) ==
LOC: HO.HMCSH 10:27
PROVIDERS: PCP Internal Medicine; Visit Provider Internal Medicine
DX: C61 Malignant neoplasm of prostate (principal); I82.402 Acute embolism and thrombosis of unspecified deep veins of left lower extremity; J30.9 Allergic rhinitis, unspecified

== ENCOUNTER → 2024-05-02 10:27 | Outpatient (BNVA) | payer MEDICARE, OTHER, SELFPAY | PROVIDERS: PCP Internal Medicine; Visit Provider Internal Medicine | DX: C61 Malignant neoplasm of prostate (principal); I82.402 Acute embolism and thrombosis of unspecified deep veins of left lower extremity; J30.9 Allergic rhinitis, unspecified | CPT/HCPCS: 99202 ==

== ENCOUNTER 2024-06-22 07:55 | Outpatient (REF) | payer MEDICARE, OTHER, SELFPAY ==
--- OUTSIDE RECORDS SUMMARY | 2024-06-22 08:01 | XMS_ITS | Patient Health Record ---
[facility] Organization [facility] Address [address] [place] [address] Care Team Providers Care Hr Specialist Name Role Phone Samuel Francisco MD Primary Care Provider Unavail able Leander Priest Unavailable [phone] Mahnaz Houston Unavailable [phone] Allergies No Known Allergies Reason For Referral No Information Medications Medication SIG (Take, Route, Frequency, Duration) Notes Start Date End Date Status Vitamin B12 Active Custom Orthotics as directed 08/04/2022 Active Physical Therapy . . . 2-3x/week for 3-4 weeks 08/04/2022 Active hydroCHLOROthiazide 50 MG 1 tablet in th e morning Orally once a day Active Vitamin D Active Montelukast Sodium 10 MG 1 tablet Orally Once a day for 30 day(s) Active Cetirizine HCl 10 MG 1 tablet Orally Once a day for 30 day(s) Active Night Splint AFO - L1930 as directed 08/04/2022 Active eliquis 5 mg twice a day Activ e Multivitamin - 1 tablet Orally Once a day for 30 day(s) Active Advair Diskus 100-50 MCG/ACT 1 puff Inha lation Twice a day Active Albuterol Sulfate ER Active Social History Tobacco Use: Social History Observation Description Date Details (start date - stop date) Never Smoker NA - NA Tobacco Use/Smoking Question Answer Notes Are you a: nonsmoker Additional Findings: Tobacco Non-User Current no n-smoker Alcohol Screen Question Answer Notes Did you have a drink contain ing alcohol in the past year? Yes How often did you have a dri nk containing alcohol in the past year? 4 or more times a week (4 points) Points 4 Interpretation Positive Tobacco use other than smoking: Question Answer Notes Are you an other tobacco user? No Problems Problem Type SNOMED Code ICD Code Onset Dates Problem Status W/U Status Risk Notes Problem Localized, primary osteoarthritis of the ankle and/or foot ([id number]) Primary osteoarthrit is, right ankle and foot (M19.071) Active confirmed Vital Signs Blood pressure diastolic 71 mm Hg 04/20/2024 Height 5ft 6in in 04/20/2024 Blood pressure systolic 128 mm Hg 04/20/2024 Weight 192 lbs 04/20/2024 BMI 30.99 kg/m2 04/20/2024 Encounters Encounter Location Date Provider Diagnosis [facility] [address] 03/30/2024 Mahnaz Houston Pain in right foot M79.671 ; Metatarsalgia, right foot M77.41 ; Flat foot [pes planus] (acquired), right foot M21.41 and Flat foot [pes planus] (acquired), left foot M21.42 [facility] [address] 04/20/2024 Mahnaz Houston Pain in right foot M79.671 ; Metatarsalgia, right foot M77.41 ; Flat foot [pes planus] (acquired), right foot M21.41 and Flat foot [pes planus] (acquired), left foot M21.[address] [address] 02/16/2024 Leander Priest [facility] [address] 03/30/2024 Mahnaz Houston Assessments Encounter Date Diagnosis (ICD Code) Assessment Notes Treatment Notes Treatment Clinical Notes Section Notes 03/30/2024 Pain in right foot (ICD-10 - M79.671) 03/30/2024 Metatarsalgia, right foot (ICD-10 - M77.41) 04/20/2024 Pain in right foot (ICD-10 - M79.671) 04/20/2024 Metatarsalgia, right foot (ICD-10 - M77.41) 03/30/2024 Flat foot [pes planus] (acquired), right foot (ICD-10 - M21.41) 03/30/2024 Flat foot [pes planus] (acquired), left foot (ICD-10 - M21.42) 04/20/2024 Flat foot [pes planus] (acquired), right foot (ICD-10 - M21.41) 04/20/2024 Flat foot [pes planus] (acquired), left foot (ICD-10 - M21.42) Plan Of Treatment Pending Test Test Name Order Date X ray : Foot, right 3V 08/04/2022 Insurance Providers Payer Name Payer Address Payer Phone Subscriber Number Group Number Insured Name Patient Relationship to Insured Coverage Start Date Coverage End Date Medicare [employer] [address] [place] [address] [id number] Hadley Majano Self - patient is the insured [address] [place] [address] [address] [place] [address] [phone] [id number] Hadley Majano Self - patient is the insured Medical (General) History Medical History History ICD Code Back,Hip,and Knee pain Cancer Cataracts covid-19 Diverticulosis Vascular phlebitis (clots) Chicken pox High Potassium Surgical History Surgery Date(Month/Year) Prostate removal 2018 Knee replacement 2019 Knee replacement 2020
--- OUTSIDE RECORDS SUMMARY | 2024-06-22 08:01 | XMS_ITS ---
Author [facility] [place] Address [address] [place] [address] Care Team Providers Care Telecasting Engineer Name Role Phone Samuel Francisco MD Primary Care Provider Unavail able Leander Priest Unavailable [phone] Mahnaz Houston Unavailable [phone] REASON FOR VISIT Dispense orthotics, Foot pain Medications Medication SIG (Take, Route, Frequency, Duration) Notes Start Date End Date Status Vitamin B12 Active Custom Orthotics as directed 08/04/2022 Active Physical Therapy . . . 2-3x/week for 3-4 weeks 08/04/2022 Active Night Splint AFO - L1930 as directed 08/04/2022 Active eliquis 5 mg twice a day Activ e Montelukast Sodium 10 MG 1 tablet Orally Once a day for 30 day(s) Active Cetirizine HCl 10 MG 1 tablet Orally Once a day for 30 day(s) Active Multivitamin - 1 tablet Orally Once a day for 30 day(s) Active Advair Diskus 100-50 MCG/ACT 1 puff Inha lation Twice a day Active Albuterol Sulfate ER Active hydroCHLOROthiazide 50 MG 1 tablet in e morning Orally once a day Active Vitamin D Active Social History Tobacco Use: Social History [...] Are you an other tobacco user? No Vital Signs Height 5ft 6in in 04/20/2024 Weight 192 lbs 04/20/2024 BMI 30.99 kg/m2 04/20/2024 Blood pressure systolic 128 mm Hg 04/20/19 25 Blood pressure diastolic 71 mm Hg 025 Encounters Encounter Location Date Provider Diagnosis [facility] [place] [address] [address] 04/20/2024 Mahnaz Houston Pain in right foot M79.671 ; Metatarsalgia, right foot M77.41 ; Flat foot [pes planus] (acquired), right foot M21.41 and Flat foot [pes planus] (acquired), left foot M21.42 Assessments Encounter Date Diagnosis (ICD Code) Assessment Notes Treatment Notes Treatment Clinical Notes Section Notes 04/20/2024 Pain in right foot (ICD-10 - M79.671) 04/20/2024 Metatarsalgia, right foot (ICD-10 - M77.41) 04/20/2024 Flat foot [pes planus] (acquired), right foot (ICD-10 - M21.41) 04/20/2024 Flat foot [pes planus] (acquired), left foot (ICD-10 - M21.42) Plan Of Treatment Next Appt Details Follow Up: prn, Reason: Progress Notes * Dov TILLMANOB: 8 (68 yo M)Acc No.[id number]:04/20/2024 Progress Note Patient:?Hadley TILLMAN Provider:?Mahnaz Houston DPM :1955???Age:68 Y???Sex:Male Juan Pablo e:04/20/2024 Address:[address] [place] [address], [id number] Pcp:Samuel Francisco MD Subjective: * Chief Complaints: * ???Dispense orthoticsFoot pa in * HPI: ???Foot Pain:?Nature:??aching, pressure.?Location?Bottom, Forefoot, Right .?Onset/Cause:?unknown.?Course:?worse.?Aggrevated:?any pressure, standing, walking.?Treatments:?custom inserts (10 years old), new pair dispensed today.? * ROS:?General/Constitutional:?Nausea?denies.?Vomiting?denies.?Hunger Thirst?denies.?Loss appetite?denies.?Chills?denies.?Fatigue?denies.?Fever?denies.?Night Sweats?denies.?Unexplained weight loss?denies.?Unexplained weight gain?denies.?HEENTM:?Dentures?denies.?Dizziness?denies.?Glasses/contacts?denies.?Retinopathy?de nies.?Blurred/double vision?denies.?TMJ?denies.?Discharge/drainage?denies.?Implants?denies.?Sore throat?denies.?Dental implants?denies.?Hard of hearing ?denies.?Difficulty chewing/swallowing/speaking?denies.?Nose bleeds?denies.?Sore mouth?denies.?Respiratory:?On Oxygen?denies.?Pneumonia/pleurisy?denies.?Bronchitis?denies.?Emphysema?denies.?C oughing?denies.?Cough blood?denies.?Shortness of breath?denies.?Wheezing?denies.?Cardiovascular:?Pacemaker?denies.?MVP?denies.?WPW?denies.?CHF?denies.?Heart attack?denies.?Septal defect?denies.?Rapid beat?denies.?Chest pain ?denies.?Atrial Fib.?denies.?Murmur/Palpitations?denies.?Gastrointestinal:?Hemorrhoids?denies.?Stomach/Abdominal pain?denies.?Dark blood stool?denies.?Irritable bowel ?denies.?Constipation?denies.?Diarrhea?denies.?Hematology:?Swelling?denies.?Clots?denies.?Varicose Veins?denies.?Bruising?denies.?Bleeding problem?denies.?Genitourinary:?Blood urine?denies.?Frequent/Painfu/urination/bladder control?denies.?Kidney stones?denies.?Infection (UTI)?denies.?Nephropathy?denies.?sex trans dis (STD)?denies.?Prostate?denies.?Musculoskeletal:?Hammertoes?denies.?Bunions?denies.?Back Pain?denies.?Muscle Cramps/ Resting?denies.?Muscle cramps / walking?denies.?Generalized aches and pains?denies.?Weakness?denies.?Integ.:?[place]?denies.?Scars?denies.?Corns/calluses?denies.?Ingrown nails?denies.?Painful nails?denies.?Open Sores?denies.?Rashes?denies.?Neurologic:?Difficulty sleeping?denies.?Brain disorder?denies.?Numbness?denies.?Balance trouble?denies.?Confusion?denies.?Fainting/blackouts?denies.?Tingling?denies.?Tr emors?denies.? * Medical History:? * Surgical History:?Prostate r emoval 2018Knee replacement 2019Knee replacement 2020 * Hospitalization/Major Diagno stic Procedure:?No Hospitalization History. * Family History:?Mother: dece ased.?Father: unknown.?Spouse: alive.? * Social History:?Tobacco Use:?Tobacco Use/Smoking?Are you a:?nonsmoker ?Additional Findings: Tobacco Non-User?Current non-smoker ?Tobacco use other than smoking?Are you an other tobacco user??No ???Drugs/Alcohol:?Drugs?Have you used drugs other than those for medical reasons in the past 12 months??Yes THC ?Alcohol Screen?Did you have a drink containing alcohol in the past year??Yes ?How often did you have a drink containing alcohol in the past year??4 or more times a week (4 points) ?Points?4 ?Interpretation?Positive ???Miscellaneous:?Caffeine: yes, frequency:, 2-3 cups per day. ?Children: yes, 4. ?Exercise: yes, walking, basketball ref, football. ?Marital status: . 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 * Medications:?TakingVitamin B 12 Vitamin D hydroCHLOROthiazide 50 MG Tablet 1 tablet in the morning Orally , Notes to Pharmacist: once a dayAlbuterol Sulfate ER Advair Diskus 100-50 MCG/ACT Aerosol Powder Breath Activated 1 puff Inhalation Twice a day Multivitamin - Tablet 1 tablet Orally Once a day Cetirizine HCl 10 MG Tablet 1 tablet Orally Once a day Montelukast Sodium 10 MG Tablet 1 tablet Orally Once a day eliquis 5 mg Tablet , Notes to Pharmacist: twice a dayNight Splint AFO - L1930 as directed Physical Therapy . . . . 2-3x/week Custom Orthotics as directed Medication List reviewed and reconciled with the patientTaking Vitamin B12 Taking Vitamin D Taking hydroCHLOROthiazide 50 MG Tablet 1 tablet in the morning Orally , Notes to Pharmacist: once a dayTaking Albuterol Sulfate ER Taking Advair Diskus 100-50 MCG/ACT Aerosol Powder Breath Activated 1 puff Inhalation Twice a day Taking Multivitamin - Tablet 1 tablet Orally Once a day Taking Cetirizine HCl 10 MG Tablet 1 tablet Orally Once a day Taking Montelukast Sodium 10 MG Tablet 1 tablet Orally Once a day Taking eliquis 5 mg Tablet , Notes to Pharmacist: twice a dayTaking Night Splint AFO - L1930 as directed Taking Physical Therapy . . . . 2-3x/week Taking Custom Orthotics as directed Medication List reviewed and reconciled with the patient * Allergies:?yes[Allergies Shara ified] Objective: * Vitals:?Ht:5ft 6in, Wt:192, BMI:30.99, Shoe size:9.5, BP:128/71mm Hg, Ht-cm: 167.64 cm, Wt-k.09 kg. * Examination: ???Neurological: ?SENSORY:?Neurological exam reveals intact sensorium, pain sensation normal, vibration sensation intact, pinprick sensation is normal in the lower extremities, Pt denies, anesthesia, burning, paresthesia, tingling, B/L.?TINEL'S COMPRESSION:?Negative tarsal tunnel, delbert pedis, and medial calcaneal nerves B/L.?BABINSKI REFLEX:?absent.?Neuroma Pain: ?PALPATION:?No interspace pain noted on palpation.?Vascular: ?DP PULSES (B):?2/4, B/L.?PT PULSES (B):?2/4, B/L.?CAPILLARY FILL TIME:?3 secs. per digit, B/L.?TROPHIC CONDITION-TEXTURE/ELASTICITY/TURGOR/HAIR GROWTH (B):?normal, B/L.?TEMPERTURE GRADIENT (C):?warm to cool, proximal to distal, B/L.?PIGMENTATION:?normal, B/L.?EDEMA (C):?no edema.?TELANGECTASIA:?absent.?VARICOSITIES:?absent.?Orthopedic: ?MUSCLE STRENGTH:?5/5 all groups in a symmetrical fashion , B/L.?GAIT ABNORMALITY:?pronated, abducted, B/L.?FOOT MORPHOLOGY:?Pes Planus structure.?General Examination: ?GENERAL APPEARANCE:?Reveals a pleasant, alert, well nourished, well- developed, well hydrated individual, who demonstrates proper attention to hygiene/body habitus, and is in no acute distress, Pt serves as own historian for office visit today.?ORIENTED:?person, place, and time.? Assessment: * Assessment: 1.?Pain in right foot - M79. 671 (Primary)???2.?Metatarsalgia, right foot - M77.41???3.?Flat foot [pes planus] (acquired), right foot - M21.41???4.?Flat foot [pes planus] (acquired), left foot - M21.42??? Plan: * Treatment: * Procedure Codes:? * Preventive Medicine:? ??Counseling:?Discussion:?-13: Office or other outpatient visit for the evaluation and management of an established patient, which required a medically appropriate history and/or examination and LOW level of DECISION MAKING for: 1 STABLE ACUTE UNCOMPLICATED PROBLEM, 2 OR MORE MINOR PROBLEMS, OR 1 STABLE CHRONIC PROBLEM, THAT POSE(S) A LOW RISK FOR MORBIDITY/MORTALITY. The visit on the day of the encounter encompassed interpreting the data and educating the patient as to the nature of their condition, treatment options available according to their individual PMH, meds, allergies, and overall health/living conditions, as well as any potential risks or complications that may occur from a failure to adhere to, and participate in, the recommended course of therapy. The discussion included a complete verbal, and/or written explanation of the examination results, any x-rays taken, the proposed diagnosis, and outline of the treatment plan. A schedule for future care needs was also explained. The patient verbalized an understanding of the instructions at this time and agreed to be an active participant in their treatment. If the patient should think of any questions or concerns after the visit, I have encouraged the patient to call the office.?Orthotic Dispensing:?The patient presents today for fitting and dispensing of orthotics. The inserts were checked against the prescription and found to be accurate. They were properly fitted to the patients feet and shoes in both weight-bearing and non-weight bearing attitudes. The patient was instructed to gradually increase the amount of time they are wearing the orthoses, starting with one hour the first day and thereon progressively increasing the amount of time used by one hours per day until they are comfortable to be worn all day and with all activities. They were asked to call the office if any signs of skin irritation were noted including redness, blistering or callous formation. The patient verbally indicated a full understanding of all the above information.? * Follow Up:?prn * Images: * Sign off status: Completed true * Provider:?Mahnaz Houston DPM Date:?0 04/20/2024 Generated for Farzad patiño/Chente/Lori on:?06/22/2024 08:01 AM EST History and Physical Notes * HPI (History of Present Illness) Category Sub-Category Detail Notes Category Not es Foot Pain Aggrevated: any pressure, standing, walk ing Onset/Cause: unknown Course: worse Nature: aching, pressure Treatments: custom inserts (10 y ears old), new pair dispensed today Location Bottom, Forefoot, Ri ght Examination Category Sub-Category Detail Notes Category Not es Neuroma Pain PALPATION: No interspace pain noted on palpation Neurological SENSORY: Neurological exa m reveals intact sensorium, pain sensation normal, vibration sensation intact, pinprick sensation is normal in the lower extremities, Pt denies, anesthesia, burning, paresthesia, tingling, B/L BABINSKI REFLEX: absent TINEL'S COMPRESSION: Negative tarsal moises calvin, delbert pedis, and medial calcaneal nerves B/L Orthopedic GAIT ABNORMALITY: pronated, abducted, B/L FOOT MORPHOLOGY: Pes Planus structure MUSCLE STRENGTH: 5/5 all groups in a symmetrical fashion , B/L General Examination GENERAL APPEARANCE: Reveals a pleasant, alert, well nourished, well-developed, well hydrated individual, who demonstrates proper attention to hygiene/body habitus, and is in no acute distress, Pt serves as own historian for office visit today ORIENTED: person, place, and t neil Vascular DP PULSES (B): 2/4, B/L PT PULSES (B): 2/4, B/L CAPILLARY FILL TIME: 3 secs. per digit, B/L TEMPERTURE GRADIENT (C): warm to cool, p roximal to distal, B/L TROPHIC CONDITION-TEXTURE/ELASTICITY/TURGOR/HAIR GROWTH (B): normal, B/L EDEMA (C): no edema TELANGECTASIA: absent VARICOSITIES: absent PIGMENTATION: normal, B/L
--- OUTSIDE RECORDS SUMMARY | 2024-06-22 08:01 | XMS_ITS ---
Author Organization Samuel Quiñones III, MD Address [address] [place] [address] ZENOBIA Rangel [place] [address] Care Team Providers Care Breakfast And Room Attendant Name Role Phone Samuel Francisco MD Primary Care Provider Unavail able aSmuel Quiñones Unavailable [phone] Allergies Allergen (clinical drug ingredient) Drug/Non Drug Allergy documented on EMR Reaction Allergy Type Onset Date Status No Known Drug Allergy Unknown Drug Allergy Active REASON FOR VISIT Prostate cancer, Asthma, Thrombophilia, GERD, Arthritis of both knees, History of DVT, Thalassemia minor, Obesity Medications Medication SIG (Take, Route, Frequency, Duration) Notes Start Date End Date Status Cetirizine HCl 10 MG 1 tablet Orally Onc e a day Active Albuterol Sulfate HFA 108 (9 0 Base) MCG/ACT 2 puffs as needed Inhalation every 6 hrs Active Advair Diskus 100-50 MCG/ACT 1 puff Inha lation Twice a day Active hydroCHLOROthiazide 50 MG TAKE 1 TABLET BY MOUTH EVERY DAY IN THE MORNING Oral Active Vitamin B12 100 MCG as directed Orally Active Montelukast Sodium 10 MG 1 tablet Orally Once a day Active Vitamin D 50 MCG (2000 UT) 1 tablet Oral ly Once a day Active Eliquis 5 MG as directed Orally twice a day Active Social History Tobacco Use: Social History Observation Description Date Details (start date - stop date) Never Smoker NA - NA Sex Assigned At : Social History Observation Description Sex Assigned At Male Tobacco Use/Smoking Question Answer Notes Patient is a nonsmoker Additional Findings: Tobacco Non-User Current no n-smoker Problems Problem Type SNOMED Code ICD Code Onset Dates Problem Status W/U Status Risk Notes Problem 18055809 Thalassemia trait (D56.3) Active confirmed His hematocrit and mean cell volume and RBC are stable. No treatment is indicated. Vital Signs Temperature 97.2 degrees Fahrenheit 02/16/20 24 Blood pressure systolic 135 mm Hg 02/16/20 24 Blood pressure diastolic 76 mm Hg 024 Heart Rate 54 /min 02/16/2024 Height 66 in 02/16/2024 Weight 192 lbs 02/16/2024 BMI 30.99 kg/m2 02/16/2024 Encounters Encounter Location Date Provider Diagnosis Samuel Quiñones III, MD [address] [place] [address] [place] [address] 02/16/2024 Samuel Quiñones Prostate cancer C61 ; Obesity (BMI 30.0-34.9) E66.9 ; History of asthma Z87.09 ; GERD without esophagitis K21.9 ; Thalassemia trait D56.3 and Thrombophilia D68.59 Assessments Encounter Date Diagnosis (ICD Code) Assessment Notes Treat ment Notes Treatment Clinical Notes 02/16/2024 Prostate cancer (ICD-10 - C61) He remains in remission. There is no sign of recurrent prostate cancer at this time. His PSA is not detectable. 02/16/2024 Obesity (BMI 30.0-34.9) (ICD-10 - E66.9) He has lost 4 pounds in his body mass index is now 30.99. We have discussed his weight loss strategy and diet and nutrition. We made a plan to lose weight at a rate of one half of a pound per week. 02/16/2024 History of asthma (ICD-10 - Z87.09) He has had no asthma recently. He will notify me if he doesn't use his inhaler as he has been instructed. 02/16/2024 GERD without esophagitis (ICD-10 - K21.9) His reflux is well controlled with medications. No change in his regimen was needed. 02/16/2024 Thalassemia trait (ICD-10 - D56.3) His hematocrit and mean cell volume and RBC are stable. No treatment is indicated. 02/16/2024 Thrombophilia (ICD-10 - D68.59) No change in his medications was made. He has had no episodes of bleeding or thrombosis. Plan Of Treatment Medication Medication Name Sig Start Date Stop Date Notes Cetirizine HCl 10 MG 1 tablet Orally Onc e a day Albuterol Sulfate HFA 108 (9 0 Base) MCG/ACT 2 puffs as needed Inhalation every 6 hrs Advair Diskus 100-50 MCG/ACT 1 puff Inha lation Twice a day hydroCHLOROthiazide 50 MG TAKE 1 TABLET BY MOUTH EVERY DAY IN THE MORNING Oral Vitamin B12 100 MCG as directed Orally Montelukast Sodium 10 MG 1 tablet Orally Once a day Vitamin D 50 MCG (2000 UT) 1 tablet Oral ly Once a day Eliquis 5 MG as directed Orally t wice a day Pending Test Test Name Order Date PROFILE, FASTING (COMPREHENSIVE METABOLI C) 02/16/2024 PSA, TOTAL 02/16/2024 CBC WITH AUTO DIFF 02/16/2024 Lipid Panel 02/16/2024 Next Appt Details Follow Up: 6 Months, Annual exam scheduled for June 13 at 3:00, Reason: OV, Annual exam Provider Name:Samuel Quiñones, 08/13/2024 10:30:00 AM, [address] [place] [address] , [place] [id number], [place], [id number], Progress Notes * Hadley TILLMAN RDOB: [birth year] (68 yo M)Acc No.[id number]:02/16/2024 Progress Notes Patient:?PRIMO Sundar Provider:?Samuel Quiñones MD :1955???Age:68 Y???Sex:Male Juan Pablo e:02/16/2024 Address:[address] [place] [address] KWABENA HERNANDEZ [id number] Pcp:Samuel Francisco MD Subjective: * Chief Complaints: * ???Prostate cancerAsthmaThro mbophiliaGERDArthritis of both kneesHistory of DVTThalassemia minorObesity * HPI: ???COVID-19 Screening:?Questions?Have you experienced fever, chills, cough, sore throat, shortness of breath, difficulty breathing, muscle aches, loss of taste or smell??No ?Have you been exposed to the virus within the last 10 days??No ?Have you travelled internationally in the last 10 days??No ?Have you been exposed to COVID-19 in the past??Yes ???:?The patient, a 68-year-old male, presented for a routine visit. He reported a weight loss of 4 lbs since his last visit in October, which he attributed to cutting down on beer and increasing his water intake. He also mentioned experiencing pain in his shoulder, which he believes is due to arthritis and a torn rotator cuff. He has been managing the pain with a combination of ibuprofen and Tylenol, but only takes it when the pain is severe due to his use of Eliquis. The patient also mentioned having incontinence, which he has accepted as a permanent condition. Blood Sugar Level is 112.There was no sign of bleeding or recurrent prostate cancer on today's examination. Blood work that was done February 14, 2024 showed white count 5.8 hematocrit 46.2 mean cell volume 78.7 platelets 276 glucose 112 BUN 16 creatinine 1.23 total cholesterol 192 triglycerides 82 HDL 61 LDL 113 PSA less than 0.1. * ROS:?General/Constitutional:?pain?Both knees.?Chills?denies.?Fatigue?admits.?Fever?denies.?Admits?Weight loss.?ENT:?Decreased hearing?denies.?Respiratory:?Cough?denies.?Cardiovascular:?Chest pain with exertion?denies.?Dyspnea on exertion?denies.?Shortness of breath?denies.?Gastrointestinal:?Constipation?occasional.?Decreased appetite?denies.?Diarrhea?denies.?Heartburn?denies.?Nausea?denies.?Rectal bleeding?denies.?Vomiting?denies.?Hematology:?bruising?denies.?petechiae?denies.?Swollen glands?none have been noted.?Genitourinary:?Frequent urination?at night.?Musculoskeletal:?Muscle aches?denies.?Painful joints?denies.?Sciatica?denies.?Weakness?denies.?Skin:?Itching?denies.?Rash?denies.?Skin lesion(s)?denies.?Neurologic:?Difficulty speaking?denies.?Dizziness?denies.?Headache?denies.?Low back pain?denies.?Psychiatric:?Depressed mood?denies.? * Medical History:? * Surgical History:?radical pr ostatectomy with sentinel nodes, [facility], Dr. Allen 10/05/2017negative colonoscopy, [facility], Dr. Samuel Roe core biopsy of prostate, Dr. Barahona 08/2017tonsillectomy left knee surgery 11/2019right knee surgery 05/2020No history * Hospitalization/Major Diagno stic Procedure:?No history * Family History:?Father: unkn own.?Mother: 58 yrs, congestive heart failure, asthma, thyroid disease.?Spouse: alive 46 yrs, hypertension,migraine headaches,, anxiety.?1 brother(s) - healthy. 1 son(s) , 3 daughter(s) - healthy. .? His brother had bariatric surgery. His children are healthy. He is not aware of any family history of mental illness or substance use disorder, or addictions. * Social History:?Tobacco Use:?Tobacco Use/Smoking?Patient is a?nonsmoker ?Additional Findings: Tobacco Non-User?Current non-smoker ???He has been to Desirae for 23 years. He has two children with her and two from a previous marriage. He has worked at the [employer] for 24 years. * Medications:?TakingVitamin B 12 100 MCG Tablet as directed Orally Cetirizine HCl 10 MG Tablet 1 tablet Orally Once a day Advair Diskus 100-50 MCG/ACT Aerosol Powder Breath Activated 1 puff Inhalation Twice a day Albuterol Sulfate HFA 108 (90 Base) MCG/ACT Aerosol Solution 2 puffs as needed Inhalation every 6 hrs Eliquis 5 MG Tablet as directed Orally twice a day Vitamin D 50 MCG (1999 UT) Tablet 1 tablet Orally Once a day Montelukast Sodium 10 MG Tablet 1 tablet Orally Once a day hydroCHLOROthiazide 50 MG Tablet TAKE 1 TABLET BY MOUTH EVERY DAY IN THE MORNING Oral Medication List reviewed and reconciled with the patientTaking Vitamin B12 100 MCG Tablet as directed Orally Taking Cetirizine HCl 10 MG Tablet 1 tablet Orally Once a day Taking Advair Diskus 100-50 MCG/ACT Aerosol Powder Breath Activated 1 puff Inhalation Twice a day Taking Albuterol Sulfate HFA 108 (90 Base) MCG/ACT Aerosol Solution 2 puffs as needed Inhalation every 6 hrs Taking Eliquis 5 MG Tablet as directed Orally twice a day Taking Vitamin D 50 MCG (1999 UT) Tablet 1 tablet Orally Once a day Taking Montelukast Sodium 10 MG Tablet 1 tablet Orally Once a day Taking hydroCHLOROthiazide 50 MG Tablet TAKE 1 TABLET BY MOUTH EVERY DAY IN THE MORNING Oral Medication List reviewed and reconciled with the patient * Allergies:?No Known Drug All ergyno[Allergies Verified] Objective: * Vitals:?Ht: 66, Wt:192, BMI: 30.99, BP:135/76, HR:54, Temp:97.2, Wt-k.09. * ???Past Orders: Lab:Lipid Panel * Collection Date 02/14/2024 11/11/2023 06/20/2023 Collection Time 07:52 AM 08:51 AM 08:01 AM Order Date 02/14/2024 11/11/2023 06/20/2023 Triglycerides 82 (Ref Range: <150 mg/dL) 168?H (Ref Range: <150 mg/dL) 76 (Ref Range: <150 mg/dL) Cholesterol 190 (Ref Range: <200 mg/dL) 245?H (Ref Range: <200 mg/dL) 202?H (Ref Range: <200 mg/dL) LDL Cholesterol Calculated 113?H (Ref Range: <100 mg/dL) 153?H (Ref Range: <100 mg/dL) 126?H (Ref Range: <100 mg/dL) HDL Cholesterol 61 (Ref Range: >40 mg/dL) 59 (Ref Range: >40 mg/dL) 61 (Ref Range: >40 mg/dL) * Lab:Prostate Specific Antige n * Collection Date 02/14/2024 11/11/2023 06/20/2023 Collection Time 07:52 AM 08:51 AM 08:01 AM Order Date 02/14/2024 11/11/2023 06/20/2023 Prostate Specific Antigen < 0.10 (Ref Range: <0.05-4.0 ng/mL) < 0.10 (Ref Range: <0.05-4.0 ng/mL) < 0.10 (Ref Range: <0.05-4.0 ng/mL) * Lab:Complete Blood Count Aut o Diff * Collection Date 02/14/2024 11/11/2023 06/20/2023 Collection Time 07:52 AM 08:51 AM 08:01 AM Order Date 02/14/2024 11/11/2023 06/20/2023 White Blood Count 5.8 (Ref Range: 4.8-10.8 X10*3/uL) 7.4 (Ref Range: 4.8-10.8 X10*3/uL) 9.0 (Ref Range: 4.8-10.8 X10*3/uL) Red Blood Count 5.87?H (Ref Range: 4.60-5.80 X10*6/uL) 6.24?H (Ref Range: 4.60-5.80 X10*6/uL) 6.04?H (Ref Range: 4.60-5.80 X10*6/uL) Hemoglobin 14.8 (Ref Range: 14.0-18.0 g/dl) 15.7 (Ref Range: 14.0-18.0 g/dl) 14.9 (Ref Range: 14.0-18.0 g/dl) Hematocrit 46.2 (Ref Range: 42.0-52.0 %) 48.8 (Ref Range: 42.0-52.0 %) 47.0 (Ref Range: 42.0-52.0 %) Mean Corpuscular Volume 78.7?L (Ref Range: 80.0-98.0 fL) 78.2?L (Ref Range: 80.0-98.0 fL) 77.8?L (Ref Range: 80.0-98.0 fL) Mean Corpuscular Hemoglobin 25.2?L (Ref Range: 27.0-33.0 pg) 25.2?L (Ref Range: 27.0-33.0 pg) 24.7?L (Ref Range: 27.0-33.0 pg) Mean Corpuscular HGB Conc 32.0 (Ref Range: 31.0-36.0 g/dl) 32.2 (Ref Range: 31.0-36.0 g/dl) 31.7 (Ref Range: 31.0-36.0 g/dl) Red Cell Distribution Width 15.7 (Ref Range: 11.0-16.0 %) 16.8?H (Ref Range: 11.0-16.0 %) 16.2?H (Ref Range: 11.0-16.0 %) Platelet Count 276 (Ref Range: 160-400 X10*3/uL) 281 (Ref Range: 160-400 X10*3/uL) 278 (Ref Range: 160-400 X10*3/uL) Mean Platelet Volume 11.5 (Ref Range: 9.4-12.4 fL) 11.7 (Ref Range: 9.4-12.4 fL) 11.8 (Ref Range: 9.4-12.4 fL) Neutrophils Percent Auto 58.9 (Ref Range: 45-73 %) 60.8 (Ref Range: 45-73 %) 64.2 (Ref Range: 45-73 %) Imm Gran Pct Auto 0.3 (Ref Range: 0.0-0.4 %) 0.5?H (Ref Range: 0.0-0.4 %) 0.4 (Ref Range: 0.0-0.4 %) Lymphocytes Percent Auto 28.2 (Ref Range: 20-40 %) 25.4 (Ref Range: 20-40 %) 23.3 (Ref Range: 20-40 %) Monocytes Percent Auto 8.1 (Ref Range: 2-11 %) 8.5 (Ref Range: 2-11 %) 7.2 (Ref Range: 2-11 %) Eosinophils Percent Auto 3.5 (Ref Range: 0-4 %) 3.6 (Ref Range: 0-4 %) 3.9 (Ref Range: 0-4 %) Basophils Percent Auto 1.0 (Ref Range: 0-2 %) 1.2 (Ref Range: 0-2 %) 1.0 (Ref Range: 0-2 %) NRBC Pct Auto 0.0 (Ref Range: 0.0-0.2 /100WBC) 0.0 (Ref Range: 0.0-0.2 /100WBC) 0.0 (Ref Range: 0.0-0.2 /100WBC) Neutrophils Absolute Auto 3.4 (Ref Range: 2.0-8.3 x10*3/uL) 4.5 (Ref Range: 2.0-8.3 x10*3/uL) 5.8 (Ref Range: 2.0-8.3 x10*3/uL) Imm Gran Abs Auto 0.02 (Ref Range: 0.00-0.03 X10*3/uL) 0.04?H (Ref Range: 0.00-0.03 X10*3/uL) 0.04?H (Ref Range: 0.00-0.03 X10*3/uL) Lymphocytes Absolute Auto 1.6 (Ref Range: 1.2-4.9 X10*3/uL) 1.9 (Ref Range: 1.2-4.9 X10*3/uL) 2.1 (Ref Range: 1.2-4.9 X10*3/uL) Monocytes Absolute Auto 0.5 (Ref Range: 0.1-1.2 X10*3/uL) 0.6 (Ref Range: 0.1-1.2 X10*3/uL) 0.7 (Ref Range: 0.1-1.2 X10*3/uL) Eosinophils Absolute Auto 0.2 (Ref Range: 0.0-0.4 X10*3/uL) 0.3 (Ref Range: 0.0-0.4 X10*3/uL) 0.4 (Ref Range: 0.0-0.4 X10*3/uL) Basophils Absolute Auto 0.1 (Ref Range: 0.0-0.2 X10*3/uL) 0.1 (Ref Range: 0.0-0.2 X10*3/uL) 0.1 (Ref Range: 0.0-0.2 X10*3/uL) NRBC Abs Auto 0.000 (Ref Range: 0.0-0.012 X10*3/uL) 0.000 (Ref Range: 0.0-0.012 X10*3/uL) 0.000 (Ref Range: 0.0-0.012 X10*3/uL) * Lab:[facility] Sanjana l Fast * Collection Date 02/14/2024 11/11/2023 06/20/2023 Collection Time 07:52 AM 08:51 AM 08:01 AM Order Date 02/14/2024 11/11/2023 06/20/2023 Sodium 143 (Ref Range: 135-145 mmol/L) 140 (Ref Range: 135-145 mmol/L) 142 (Ref Range: 135-145 mmol/L) Bilirubin Total 0.5 (Ref Range: 0.0-1.0 mg/dL) 0.6 (Ref Range: 0.0-1.0 mg/dL) 0.3 (Ref Range: 0.0-1.0 mg/dL) Aspartate Amino Transferase 29 (Ref Range: 5-37 U/L) 31 (Ref Range: 5-37 U/L) 24 (Ref Range: 5-37 U/L) Alanine Aminotransferase 33 (Ref Range: 0-40 U/L) 27 (Ref Range: 0-40 U/L) 25 (Ref Range: 0-40 U/L) Total Protein 7.0 (Ref Range: 6.5-8.0 g/dL) 7.8 (Ref Range: 6.5-8.0 g/dL) 7.3 (Ref Range: 6.5-8.0 g/dL) Albumin Level 4.2 (Ref Range: 3.5-5.0 g/dL) 4.4 (Ref Range: 3.5-5.0 g/dL) 4.2 (Ref Range: 3.5-5.0 g/dL) Alkaline Phosphatase 82 (Ref Range: 39-117 U/L) 90 (Ref Range: 39-117 U/L) 84 (Ref Range: 39-117 U/L) Potassium 4.2 (Ref Range: 3.3-5.1 mmol/L) 4.6 (Ref Range: 3.3-5.1 mmol/L) 3.9 (Ref Range: 3.3-5.1 mmol/L) Chloride 107 (Ref Range: 96-108 mmol/L) 104 (Ref Range: 96-108 mmol/L) 104 (Ref Range: 96-108 mmol/L) Carbon Dioxide 27 (Ref Range: 22-29 mmol/L) 26 (Ref Range: 22-29 mmol/L) 29 (Ref Range: 22-29 mmol/L) Anion Gap 13 (Ref Range: 12-20) 15 (Ref Range: 12-20) 13 (Ref Range: 12-20) Blood Urea Nitrogen 16 (Ref Range: 9-16 mg/dL) 14 (Ref Range: 9-16 mg/dL) 15 (Ref Range: 9-16 mg/dL) Creatinine 1.23 (Ref Range: 0.5-1.4 mg/dL) 1.15 (Ref Range: 0.5-1.4 mg/dL) 1.11 (Ref Range: 0.5-1.4 mg/dL) Estimated Glomerular Filt Rate 59 > 60 > 60 Glucose Fasting 112?H (Ref Range: 60-99 mg/dL) 107?H (Ref Range: 60-99 mg/dL) 115?H (Ref Range: 60-99 mg/dL) Calcium 9.4 (Ref Range: 8.4-10.2 mg/dL) 9.6 (Ref Range: 8.4-10.2 mg/dL) 9.5 (Ref Range: 8.4-10.2 mg/dL) * Examination: ???General Examination: ?GENERAL APPEARANCE:?pleasant, well nourished, well developed, in no acute distress, calm and relaxed, obese, man.?HEAD:?atraumatic, normocephalic.?EYES:?eomi, perrla, anicteric, conjugate.?EARS:?normal.?NOSE:?septum intact.?ORAL CAVITY:?normal, unremarkable.?NECK/THYROID:?no jugular venous distention, no carotid bruit, thyroid normal.?LYMPH NODES:?no enlarged lymph nodes,spleen normal.?SKIN:?no suspicious lesions, anicteric.?HEART:?no clicks, gallops, murmurs, or rubs, regular rhythm, S1, S2 normal, no s3, or vascular bruits.?LUNGS:?clear to auscultation, no wheezes, rales, rhonchi, good air movement.?BREASTS:??no masses palpable bilaterally.?ABDOMEN:?bowel sounds normal, no ascites, no organomegaly, no mass, centripital obesity.?RECTAL EXAM:?not examined.?MUSCULOSKELETAL:?extremities unremarkable, no clubbing, cyanosis or edema.?PERIPHERAL PULSES:?normal.?NEUROLOGIC:?alert and oriented, cranial nerves 2-12 grossly intact, deep tendon reflexes 2+ symmetrical, motor strength normal upper and lower extremities, sensory exam intact.?PSYCH:?alert, oriented.? Assessment: * Assessment: 1.?Prostate cancer - C61 (Pr imary)???Notes :He remains in remission. There is no sign of recurrent prostate cancer at this time. His PSA is not detectable.???2.?Obesity (BMI 30.0-34.9) - E66.9???Notes :He has lost 4 pounds in his body mass index is now 30.99.? We have discussed his weight loss strategy and diet and nutrition.? We made a plan to lose weight at a rate of one half of a pound per week.???3.?History of asthma - Z87.09???Notes :He has had no asthma recently. He will notify me if he doesn't use his inhaler as he has been instructed.???4.?GERD without esophagitis - K21.9???Notes :His reflux is well controlled with medications. No change in his regimen was needed.???5.?Thalassemia trait - D56.3???Notes :His hematocrit and mean cell volume and RBC are stable.? No treatment is indicated.???6.?Thrombophilia - D68.59???Notes :No change in his medications was made. He has had no episodes of bleeding or thrombosis.??? Plan: * Treatment: 2.?Obesity (BMI 30.0-34.9)?LAB: PROFILE, FASTING (COMPREHENSIVE METABOLIC) ?LAB: PSA, TOTAL ?LAB: CBC WITH AUTO DIFF ?LAB: Lipid Panel 3.?Others? Continue Vitamin B12 Tablet, 100 MCG, as directed, Orally;?Continue Cetirizine HCl Tablet, 10 MG, 1 tablet, Orally, Once a day;?Continue Advair Diskus Aerosol Powder Breath Activated, 100-50 MCG/ACT, 1 puff, Inhalation, Twice a day;?Continue hydroCHLOROthiazide Tablet, 50 MG, TAKE 1 TABLET BY MOUTH EVERY DAY IN THE MORNING, Oral.?? * Procedure Codes:? * Preventive Medicine:? ??Counseling:?Care goal follow-up plan:?Counseling for abnormal BMI given?Yes ?Above Normal BMI Follow-up?Dietary management education, guidance, and counseling, Dietary needs education * Follow Up:?6 Months, Annual exam scheduled for June 13 at 3:00 (Reason: OV, Annual exam) * Images: * Sign off status: Completed true * Provider:?Samuel Quiñones MD Date:?01/18 Generated for Corrinai haroon/Chente/eTransmitting on:?06/22/2024 08:01 AM EST History and Physical Notes * HPI (History of Present Illness) Category Sub-Category Detail Notes COVID-19 Screening Questions Have you had any new onset fever, chills, cough, congestion, sore throat, shortness of breath, muscle aches?: No Have you been exposed to the virus withi n the last 10 days?: No Have you travelled internationally in last 10 days?: No Have you been exposed to COVID-19 in the past?: Yes Examination Category Sub-Category Detail Notes General Examination GENERAL APPEARANCE: pleasant , well nourished, well developed, in no acute distress, calm and relaxed, obese, man HEAD: atraumatic, normocep halic EYES: eomi, perrla, anicte rosmery, conjugate EARS: normal NOSE: septum intact NECK/THYROID: no jugular venous di stention, no carotid bruit, thyroid normal HEART: no clicks, gallops, murmurs, or rubs, regular rhythm, S1, S2 normal, no s3, or vascular bruits LUNGS: clear to auscultatio n, no wheezes, rales, rhonchi, good air movement ABDOMEN: bowel sounds normal, no ascites, no organomegaly, no mass, centripital obesity NEUROLOGIC: alert and oriented, cranial nerves 2-12 grossly intact, deep tendon reflexes 2+ symmetrical, motor strength normal upper and lower extremities, sensory exam intact SKIN: no suspicious lesion s, anicteric PERIPHERAL PULSES: normal BREASTS: no masses palpable b ilaterally MUSCULOSKELETAL: extremities unremark able, no clubbing, cyanosis or edema LYMPH NODES: no enlarged lymph no lynda,spleen normal RECTAL EXAM: not examined PSYCH: alert, oriented ORAL CAVITY: normal, unremarkable
--- OUTSIDE RECORDS SUMMARY | 2024-06-22 08:01 | XMS_ITS ---
Author Organization [facility] Address [address] [place] [address] Care Team Providers Care Missile Facilities Repairer Name Role Phone Samuel Francisco MD Primary Care Provider Unavail able Leander Priest Unavailable [phone] Mahnaz Houston Unavailable [phone] REASON FOR VISIT DPM Orthotics Encounters Encounter Location Date Provider Diagnosis [facility] [address] [place] [address] 03/30/2024 Mahnaz Houston Plan Of Treatment No Information Progress Notes * Dov TILLMANOB: 8 (68 yo M)Acc No.[id number]:03/30/2024 Patient:?Hadley TILLMAN :1955???Age:68 Y???Sex:Male [facility] [place] [address] * true * Date:? Generated for Farzad patiño/Chente/eTransmitting on:?06/22/2024 08:01 AM EST
--- OUTSIDE RECORDS SUMMARY | 2024-06-22 08:02 | XMS_ITS ---
Author Organization Samuel uQiñones III, MD Address [address] [place] [address] [place] [id number] Care Team Providers Care Fire Suppression Captain Name Role Phone Samuel Francisco MD Primary Care Provider Unavail able Samuel Quiñones Unavailable [phone] Allergies Allergen (clinical drug ingredient) Drug/Non Drug Allergy documented on EMR Reaction Allergy Type Onset Date Status No Known Drug Allergy Unknown Drug Allergy Active REASON FOR VISIT Prostate cancer, Asthma, GERD, Obesity, Thrombophilia, Osteoarthritis of both knees, History of DVT Medications Medication SIG (Take, Route, Frequency, Duration) Notes Start Date End Date Status Vitamin B12 100 MCG as directed Orally Active hydroCHLOROthiazide 50 MG TAKE 1 TABLET BY MOUTH EVERY DAY IN THE MORNING Oral Active Montelukast Sodium 10 MG 1 tablet Orally Once a day Active Vitamin D 50 MCG (2000 UT) 1 tablet Oral ly Once a day Active Eliquis 5 MG as directed Orally twice a day Active Albuterol Sulfate HFA 108 (9 0 Base) MCG/ACT 2 puffs as needed Inhalation every 6 hrs Active Advair Diskus 100-50 MCG/ACT 1 puff Inha lation Twice a day Active Cetirizine HCl 10 MG 1 tablet Orally Onc e a day Active Social History Tobacco Use: Social History Observation Description Date Details (start date - stop date) Never Smoker NA - NA Sex Assigned At : Social History Observation Description Sex Assigned At Male Tobacco Use/Smoking Question Answer Notes Patient is a nonsmoker Additional Findings: Tobacco Non-User Current no n-smoker Vital Signs Temperature 97.7 degrees Fahrenheit 11/16/19 24 Blood pressure systolic 129 mm Hg 11/16/19 24 Blood pressure diastolic 84 mm Hg 024 Heart Rate 57 /min 11/16/2023 Height 66 in 11/16/2023 Weight 196 lbs 11/16/2023 BMI 31.63 kg/m2 11/16/2023 Encounters Encounter Location Date Provider Diagnosis Samuel Quiñones III, MD [address] [place] [address] DR [place], [place] [id number] 11/16/2023 Samuel Quiñones Prostate cancer C61 ; Obesity (BMI 30.0-34.9) E66.9 ; History of asthma Z87.09 ; GERD without esophagitis K21.9 ; Thrombophilia D68.59 ; Primary osteoarthritis of left knee M17.12 and Acute deep vein thrombosis (DVT) I82.409 Assessments Encounter Date Diagnosis (ICD Code) Assessment Notes Treat ment Notes Treatment Clinical Notes 11/16/2023 Prostate cancer (ICD-10 - C61) He remains in remission. There is no sign of recurrent prostate cancer at this time. His PSA will be checked periodically. 11/16/2023 Obesity (BMI 30.0-34.9) (ICD-10 - E66.9) He has lost 3 pounds but remains obese. He is trying to lose weight. We discussed diet and nutrition today. We made a plan to lose weight at a rate of one half of a pound per week. 11/16/2023 History of asthma (ICD-10 - Z87.09) He has had no asthma recently. He will notify me if he doesn't use his inhaler as he has been instructed. 11/16/2023 GERD without esophagitis (ICD-10 - K21.9) His reflux is well controlled with medications. No change in his regimen was needed. 11/16/2023 Thrombophilia (ICD-10 - D68.59) No change in his medications was made. He has had no episodes of bleeding or thrombosis. 11/16/2023 Primary osteoarthritis of left knee (ICD-10 - M17.12) He is going to have the opposite knee replaced several 2020 at [facility]. 11/16/2023 Acute deep vein thrombosis (DVT) (ICD-10 - I82.409) He remains anticoagulated with apixaban without bleeding. Plan Of Treatment Medication Medication Name Sig Start Date Stop Date Notes Vitamin B12 100 MCG as directed Orally hydroCHLOROthiazide 50 MG TAKE 1 TABLET BY MOUTH EVERY DAY IN THE MORNING Oral Montelukast Sodium 10 MG 1 tablet Orally Once a day Vitamin D 50 MCG (2000 UT) 1 tablet Oral ly Once a day Eliquis 5 MG as directed Orally t wice a day Albuterol Sulfate HFA 108 (9 0 Base) MCG/ACT 2 puffs as needed Inhalation every 6 hrs Advair Diskus 100-50 MCG/ACT 1 puff Inha lation Twice a day Cetirizine HCl 10 MG 1 tablet Orally Onc e a day Pending Test Test Name Order Date PROFILE, FASTING (COMPREHENSIVE METABOLI C) 11/16/2023 PSA, TOTAL 11/16/2023 CBC w DIFF 11/16/2023 Lipid Panel 11/16/2023 Next Appt Details Follow Up: 3 Months, Reason: OV Provider Name:Samuel Quiñones, 08/13/2024 10:30:00 AM, [address] [place] [address] [address] [place] [id number], [place], [id number], Progress Notes * Hadley TILLMAN RDOB: [birth year] (68 yo M)Acc No.[id number]:11/16/2023 Progress Notes Patient:?Hadley Tillman Provider:?Samuel Quiñones MD :1955???Age:68 Y???Sex:Male Juan Pablo e:11/16/2023 Address:[address] [place] [address] KWABENA HERNANDEZ [id number] Pcp:Samuel Francisco MD Subjective: * Chief Complaints: * ???Prostate cancerAsthmaGERD ObesityThrombophiliaOsteoarthritis of both kneesHistory of DVT * HPI: ???COVID-19 Screening:? He returns for follow-up of his prostate cancer. 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 He has been having pain at night all over. He can't sleep very well. He says his whole body is sore. He has right shoulder rotator cuff pain as well. His primary care physician has recommended therapy. Natolandon Tillman thanks his anxiety comes from his 's illness and the 2 of them caring for for grandchildren every day. His PSA is not detectable. His examination today was unremarkable except for emotional distress. He denied suicidality. ?Questions?Have you experienced fever, chills, cough, sore throat, shortness of breath, difficulty breathing, muscle aches, loss of taste or smell??No ?Have you been exposed to the virus within the last 10 days??No ?Have you travelled internationally in the last 10 days??No ?Have you been exposed to COVID-19 in the past??Yes * ROS:?General/Constitutional:?pain?Right shoulder and all over at night when trying to sleep.?Chills?denies.?Fatigue?admits.?Fever?denies.?ENT:?Decreased hearing?denies.?Respiratory:?Cough?denies.?Cardiovascular:?Chest pain with exertion?denies.?Dyspnea on exertion?denies.?Shortness of breath?denies.?Gastrointestinal:?Constipation?occasional.?Decreased appetite?denies.?Diarrhea?denies.?Heartburn?denies.?Nausea?denies.?Rectal bleeding?denies.?Vomiting?denies.?Hematology:?bruising?denies.?petechiae?denies.?Swollen glands?none have been noted.?Genitourinary:?Frequent urination?once a night.?Musculoskeletal:?Muscle aches?denies.?Painful joints?denies.?Sciatica?denies.?Weakness?denies.?Skin:?Itching?denies.?Rash?denies.?Skin lesion(s)?denies.?Neurologic:?Difficulty speaking?denies.?Dizziness?denies.?Headache?denies.?Low back pain?denies.?Psychiatric:?Depressed mood?which is moderate.? * Medical History:? * Surgical History:?radical pr ostatectomy with sentinel nodes, [facility], Dr. Allen 10/05/2017negative colonoscopy, [facility], Dr. Samuel Roe core biopsy of prostate, Dr. Barahona 08/2017tonsillectomy left knee surgery 11/2019right knee surgery 05/2020 * Hospitalization/Major Diagno stic Procedure:?Denies Past Hospitalization * Family History:?Father: unkn own.?Mother: 58 yrs, [...] previous marriage. He has worked at the [employer] for 24 years. * Medications:?TakingVitamin B 12 100 MCG Tablet as directed Orally Cetirizine HCl 10 MG Tablet 1 tablet Orally Once a dayAdvair Diskus 100-50 MCG/ACT Aerosol Powder Breath Activated 1 puff Inhalation Twice a dayAlbuterol Sulfate HFA 108 (90 Base) MCG/ACT Aerosol Solution 2 puffs as needed Inhalation every 6 hrsEliquis 5 MG Tablet as directed Orally twice a dayVitamin D 50 MCG (2000 UT) Tablet 1 tablet Orally Once a dayMontelukast Sodium 10 MG Tablet 1 tablet Orally Once a dayhydroCHLOROthiazide 50 MG Tablet TAKE 1 TABLET BY MOUTH EVERY DAY IN THE MORNING Oral Medication List reviewed and reconciled with the patientTaking Vitamin B12 100 MCG Tablet as directed Orally Taking Cetirizine HCl 10 MG Tablet 1 tablet Orally Once a dayTaking Advair Diskus 100-50 MCG/ACT Aerosol Powder Breath Activated 1 puff Inhalation Twice a dayTaking Albuterol Sulfate HFA 108 (90 Base) MCG/ACT Aerosol Solution 2 puffs as needed Inhalation every 6 hrsTaking Eliquis 5 MG Tablet as directed Orally twice a dayTaking Vitamin D 50 MCG (2000 UT) Tablet 1 tablet Orally Once a dayTaking Montelukast Sodium 10 MG Tablet 1 tablet Orally Once a dayTaking hydroCHLOROthiazide 50 MG Tablet TAKE 1 TABLET BY MOUTH EVERY DAY IN THE MORNING Oral Medication List reviewed and reconciled with the patient * Allergies:?No Known Drug All ergyno[Allergies Verified] Objective: * Vitals:?Ht: 66, Wt:196, BMI: 31.63, BP:129/84, HR:57, Temp:97.7, Wt-k.9. * ???Past Orders: ???Lab:Vitamin B12 (Order Da te - 11/11/2023) (Collection Date - 11/11/2023) ? Value Reference Range ?Vitamin B12 1109 H 200-900 - pg/mL Lab:Prostate Specific Antige n * Order Date 11/11/2023 06/20/2023 12/22/2022 Prostate Specific Antigen < 0.10 (Ref Range: <0.05-4.0 ng/mL) < 0.10 (Ref Range: <0.05-4.0 ng/mL) < 0.10 (Ref Range: <0.05-4.0 ng/mL) * Lab:Lipid Panel * Order Date 11/11/2023 06/20/2023 12/22/2022 Triglycerides 168?H (Ref Range: <150 mg/dL) 76 (Ref Range: <150 mg/dL) 105 (Ref Range: <150 mg/dL) Cholesterol 245?H (Ref Range: <200 mg/dL) 202?H (Ref Range: <200 mg/dL) 222?H (Ref Range: <200 mg/dL) LDL Cholesterol Calculated 153?H (Ref Range: <100 mg/dL) 126?H (Ref Range: <100 mg/dL) 144?H (Ref Range: <100 mg/dL) HDL Cholesterol 59 (Ref Range: >40 mg/dL) 61 (Ref Range: >40 mg/dL) 57 (Ref Range: >40 mg/dL) * Lab:Reddy cloud Fast * Order Date 11/11/2023 06/20/2023 12/22/2022 Sodium 140 (Ref Range: 135-145 mmol/L) 142 (Ref Range: 135-145 mmol/L) 140 (Ref Range: 135-145 mmol/L) Bilirubin Total 0.6 (Ref Range: 0.0-1.0 mg/dL) 0.3 (Ref Range: 0.0-1.0 mg/dL) 0.3 (Ref Range: 0.0-1.0 mg/dL) Aspartate Amino Transferase 31 (Ref Range: 5-37 U/L) 24 (Ref Range: 5-37 U/L) 30 (Ref Range: 5-37 U/L) Alanine Aminotransferase 27 (Ref Range: 0-40 U/L) 25 (Ref Range: 0-40 U/L) 30 (Ref Range: 0-40 U/L) Total Protein 7.8 (Ref Range: 6.5-8.0 g/dL) 7.3 (Ref Range: 6.5-8.0 g/dL) 7.0 (Ref Range: 6.5-8.0 g/dL) Albumin Level 4.4 (Ref Range: 3.5-5.0 g/dL) 4.2 (Ref Range: 3.5-5.0 g/dL) 4.1 (Ref Range: 3.5-5.0 g/dL) Alkaline Phosphatase 90 (Ref Range: 39-117 U/L) 84 (Ref Range: 39-117 U/L) 82 (Ref Range: 39-117 U/L) Potassium 4.6 (Ref Range: 3.3-5.1 mmol/L) 3.9 (Ref Range: 3.3-5.1 mmol/L) 3.8 (Ref Range: 3.3-5.1 mmol/L) Chloride 104 (Ref Range: 96-108 mmol/L) 104 (Ref Range: 96-108 mmol/L) 105 (Ref Range: 96-108 mmol/L) Carbon Dioxide 26 (Ref Range: 22-29 mmol/L) 29 (Ref Range: 22-29 mmol/L) 26 (Ref Range: 22-29 mmol/L) Anion Gap 15 (Ref Range: 12-20) 13 (Ref Range: 12-20) 13 (Ref Range: 12-20) Blood Urea Nitrogen 14 (Ref Range: 9-16 mg/dL) 15 (Ref Range: 9-16 mg/dL) 15 (Ref Range: 9-16 mg/dL) Creatinine 1.15 (Ref Range: 0.5-1.4 mg/dL) 1.11 (Ref Range: 0.5-1.4 mg/dL) 1.21 (Ref Range: 0.5-1.4 mg/dL) Estimated Glomerular Filt Rate > 60 > 60 > 60 Glucose Fasting 107?H (Ref Range: 60-99 mg/dL) 115?H (Ref Range: 60-99 mg/dL) 110?H (Ref Range: 60-99 mg/dL) Calcium 9.6 (Ref Range: 8.4-10.2 mg/dL) 9.5 (Ref Range: 8.4-10.2 mg/dL) 9.4 (Ref Range: 8.4-10.2 mg/dL) * Lab:Complete Blood Count Aut o Diff * Order Date 11/11/2023 06/20/2023 12/22/2022 White Blood Count 7.4 (Ref Range: 4.8-10.8 X10*3/uL) 9.0 (Ref Range: 4.8-10.8 X10*3/uL) 6.8 (Ref Range: 4.8-10.8 X10*3/uL) Red Blood Count 6.24?H (Ref Range: 4.60-5.80 X10*6/uL) 6.04?H (Ref Range: 4.60-5.80 X10*6/uL) 6.01?H (Ref Range: 4.60-5.80 X10*6/uL) Hemoglobin 15.7 (Ref Range: 14.0-18.0 g/dl) 14.9 (Ref Range: 14.0-18.0 g/dl) 15.1 (Ref Range: 14.0-18.0 g/dl) Hematocrit 48.8 (Ref Range: 42.0-52.0 %) 47.0 (Ref Range: 42.0-52.0 %) 46.2 (Ref Range: 42.0-52.0 %) Mean Corpuscular Volume 78.2?L (Ref Range: 80.0-98.0 fL) 77.8?L (Ref Range: 80.0-98.0 fL) 76.9?L (Ref Range: 80.0-98.0 fL) Mean Corpuscular Hemoglobin 25.2?L (Ref Range: 27.0-33.0 pg) 24.7?L (Ref Range: 27.0-33.0 pg) 25.1?L (Ref Range: 27.0-33.0 pg) Mean Corpuscular HGB Conc 32.2 (Ref Range: 31.0-36.0 g/dl) 31.7 (Ref Range: 31.0-36.0 g/dl) 32.7 (Ref Range: 31.0-36.0 g/dl) Red Cell Distribution Width 16.8?H (Ref Range: 11.0-16.0 %) 16.2?H (Ref Range: 11.0-16.0 %) 15.5 (Ref Range: 11.0-16.0 %) Platelet Count 281 (Ref Range: 160-400 X10*3/uL) 278 (Ref Range: 160-400 X10*3/uL) 290 (Ref Range: 160-400 X10*3/uL) Mean Platelet Volume 11.7 (Ref Range: 9.4-12.4 fL) 11.8 (Ref Range: 9.4-12.4 fL) 10.8 (Ref Range: 9.4-12.4 fL) Neutrophils Percent Auto 60.8 (Ref Range: 45-73 %) 64.2 (Ref Range: 45-73 %) 60.6 (Ref Range: 45-73 %) Imm Gran Pct Auto 0.5?H (Ref Range: 0.0-0.4 %) 0.4 (Ref Range: 0.0-0.4 %) 0.3 (Ref Range: 0.0-0.4 %) Lymphocytes Percent Auto 25.4 (Ref Range: 20-40 %) 23.3 (Ref Range: 20-40 %) 26.3 (Ref Range: 20-40 %) Monocytes Percent Auto 8.5 (Ref Range: 2-11 %) 7.2 (Ref Range: 2-11 %) 8.8 (Ref Range: 2-11 %) Eosinophils Percent Auto 3.6 (Ref Range: 0-4 %) 3.9 (Ref Range: 0-4 %) 2.8 (Ref Range: 0-4 %) Basophils Percent Auto 1.2 (Ref Range: 0-2 %) 1.0 (Ref Range: 0-2 %) 1.2 (Ref Range: 0-2 %) NRBC Pct Auto 0.0 (Ref Range: 0.0-0.2 /100WBC) 0.0 (Ref Range: 0.0-0.2 /100WBC) 0.0 (Ref Range: 0.0-0.2 /100WBC) Neutrophils Absolute Auto 4.5 (Ref Range: 2.0-8.3 x10*3/uL) 5.8 (Ref Range: 2.0-8.3 x10*3/uL) 4.1 (Ref Range: 2.0-8.3 x10*3/uL) Imm Gran Abs Auto 0.04?H (Ref Range: 0.00-0.03 X10*3/uL) 0.04?H (Ref Range: 0.00-0.03 X10*3/uL) 0.02 (Ref Range: 0.00-0.03 X10*3/uL) Lymphocytes Absolute Auto 1.9 (Ref Range: 1.2-4.9 X10*3/uL) 2.1 (Ref Range: 1.2-4.9 X10*3/uL) 1.8 (Ref Range: 1.2-4.9 X10*3/uL) Monocytes Absolute Auto 0.6 (Ref Range: 0.1-1.2 X10*3/uL) 0.7 (Ref Range: 0.1-1.2 X10*3/uL) 0.6 (Ref Range: 0.1-1.2 X10*3/uL) Eosinophils Absolute Auto 0.3 (Ref Range: 0.0-0.4 X10*3/uL) 0.4 (Ref Range: 0.0-0.4 X10*3/uL) 0.2 (Ref Range: 0.0-0.4 X10*3/uL) Basophils Absolute Auto 0.1 (Ref Range: 0.0-0.2 X10*3/uL) 0.1 (Ref Range: 0.0-0.2 X10*3/uL) 0.1 (Ref Range: 0.0-0.2 X10*3/uL) NRBC Abs Auto 0.000 (Ref Range: 0.0-0.012 X10*3/uL) 0.000 (Ref Range: 0.0-0.012 X10*3/uL) 0.000 (Ref Range: 0.0-0.012 X10*3/uL) ???Lab:Vitamin D 25-OH Total (Order Date - 11/11/2023) (Collection Date - 11/11/2023)?ValueReference Range?Vitamin D 25-OH Total54.4>30 - ng/mL * Examination: ???General Examination: ?GENERAL APPEARANCE:?pleasant, well nourished, well developed, in no acute distress, calm and relaxed , obese , man.?HEAD:?atraumatic, normocephalic.?EYES:?eomi, perrla, anicteric, conjugate.?EARS:?normal.?NOSE:?septum intact.?ORAL CAVITY:?normal, unremarkable.?NECK/THYROID:?no jugular venous distention, no carotid bruit, thyroid normal.?LYMPH NODES:?no enlarged lymph nodes,spleen normal.?SKIN:?no suspicious lesions, anicteric.?HEART:?no clicks, gallops, murmurs, or rubs, regular rhythm, S1, S2 normal, no s3, or vascular bruits.?LUNGS:?clear to auscultation .?BREASTS:??no masses palpable bilaterally.?ABDOMEN:?bowel sounds normal, no ascites, no organomegaly, no mass , centripital obesity.?RECTAL EXAM:?not examined.?MUSCULOSKELETAL:?extremities unremarkable, no clubbing, cyanosis or edema.?PERIPHERAL PULSES:?normal.?NEUROLOGIC:?alert and oriented, cranial nerves 2-12 grossly intact, deep tendon reflexes 2+ symmetrical, motor strength normal upper and lower extremities, sensory exam intact.?PSYCH:?alert, oriented.? Assessment: * Assessment: 1.?Obesity (BMI 30.0-34.9) - E66.9, He has lost 3 pounds but remains obese. He is trying to lose weight. We discussed diet and nutrition today. We made a plan to lose weight at a rate of one half of a pound per week.?2.?Prostate cancer - C61, He remains in remission. There is no sign of recurrent prostate cancer at this time. His PSA will be checked periodically.?3.?History of asthma - Z87.09, He has had no asthma recently. He will notify me if he doesn't use his inhaler as he has been instructed.?4.?GERD without esophagitis - K21.9, His reflux is well controlled with medications. No change in his regimen was needed.?5.?Thrombophilia - D68.59, No change in his medications was made. He has had no episodes of bleeding or thrombosis.?6.?Primary osteoarthritis of left knee - M17.12, He is going to have the opposite knee replaced several 2020 at [facility].?7.?Acute deep vein thrombosis (DVT) - I82.409, He remains anticoagulated with apixaban without bleeding.? Plan: * Treatment: 2.?Prostate cancer? Continue Albuterol Sulfate HFA Aerosol Solution, 108 (90 Base) MCG/ACT, 2 puffs as needed, Inhalation, every 6 hrs;?Continue Eliquis Tablet, 5 MG, as directed, Orally, twice a day;?Continue Vitamin D Tablet, 50 MCG (2000 UT), 1 tablet, Orally, Once a day;?Continue Montelukast Sodium Tablet, 10 MG, 1 tablet, Orally, Once a day.?LAB: PROFILE, FASTING (COMPREHENSIVE METABOLIC) ?LAB: PSA, TOTAL ?LAB: CBC w DIFF ?LAB: Lipid Panel 3.?Others? Continue Vitamin [...] management education, guidance, and counseling, Dietary needs education, Exercise promotion: strength training, Exercise promotion: stretching, Feeding regime, Giving encouragement to exercise, Lifestyle education regarding diet, Nutrition / feeding management, Nutrition therapy, Prescribed activity/exercise education, Prescribed diet education, Prescribed dietary intake, Special diet education, Weight monitoring , Intervention, Order not done: Medical or Other reason not done * Follow Up:?3 Months (Reason: OV) * Images: * Sign off status: Completed true * Provider:?Samuel Quiñones MD Date:?10/18 Generated for Farzad patiño/Chente/Jimitting on:?06/22/2024 08:01 AM EST History and Physical Notes * HPI (History of Present Illness) Category Sub-Category Detail Notes COVID-19 Screening Questions Have you had any new onset fever, chills, cough, congestion, sore throat, shortness of breath, muscle aches?: No Have you been exposed to the virus withi n the last 10 days?: No Have you travelled internationally in e last 10 days?: No Have you been exposed to COVID-19 in the past?: Yes Examination Category Sub-Category Detail Notes General Examination GENERAL APPEARANCE: pleasant , well nourished, well developed, in no acute distress, calm and relaxed , obese , man HEAD: atraumatic, normocep halic EYES: eomi, perrla, anicte rosmery, conjugate EARS: normal NOSE: septum intact NECK/THYROID: no jugular venous di stention, no carotid bruit, thyroid normal HEART: no clicks, gallops, murmurs, or rubs, regular rhythm, S1, S2 normal, no s3, or vascular bruits LUNGS: clear to auscultatio n ABDOMEN: bowel sounds normal, no ascites, no organomegaly, no mass , centripital obesity NEUROLOGIC: alert and oriented, cranial [...]
--- OUTSIDE RECORDS SUMMARY | 2024-06-22 08:02 | XMS_ITS ---
[facility] britany Carver Address [address] [place] [address] Care Team Providers Care Solutions Engineer Name Role Phone Samuel Francisco MD Primary Care Provider Unavail able Leander Priest Unavailable [phone] Mahnaz Houston Unavailable [phone] Allergies No Known Allergies REASON FOR VISIT Pcp-11/08 Medications Medication SIG (Take, Route, Frequency, Duration) Notes Start Date End Date Status Montelukast Sodium 10 MG 1 tablet Orally Once a day for 30 day(s) Active eliquis 5 mg twice a day Activ e Night Splint AFO - L1930 as directed 08/04/2022 Active Physical Therapy . . . 2-3x/week for 3-4 weeks 08/04/2022 Active Custom Orthotics as directed 08/04/2022 Active hydroCHLOROthiazide 50 MG 1 tablet in th e morning Orally once a day Active Multivitamin - 1 tablet Orally Once a day for 30 day(s) Active Cetirizine HCl 10 MG 1 tablet Orally Once a day for 30 day(s) Active Albuterol Sulfate ER Active Advair Diskus 100-50 MCG/ACT 1 puff Inha lation Twice a day Active Vitamin D Active Vitamin B12 Active Social History Tobacco Use: Social History Observation Description Date Details (start date - stop date) Never Smoker NA - NA Tobacco Use/Smoking Question Answer Notes Are you a: nonsmoker Additional Findings: Tobacco Non-User Current no n-smoker Tobacco use other than smoking: Question Answer Notes Are you an other tobacco user? No Vital Signs Height 5ft6in in 03/30/2024 Weight 192 lbs 03/30/2024 BMI 30.99 kg/m2 03/30/2024 Blood pressure systolic 112 mm Hg 03/30/20 24 Blood pressure diastolic 80 mm Hg 024 Encounters Encounter Location Date Provider Diagnosis [facility] [place] [address] [address] 03/30/2024 Mahnaz Celso Pain in right foot M79.671 ; Metatarsalgia, right foot M77.41 ; Flat foot [pes planus] (acquired), right foot M21.41 and Flat foot [pes planus] (acquired), left foot M21.42 Assessments Encounter Date Diagnosis (ICD Code) Assessment Notes Treatment Notes Treatment Clinical Notes Section Notes 03/30/2024 Pain in right foot (ICD-10 - M79.671) 03/30/2024 Metatarsalgia, right foot (ICD-10 - M77.41) 03/30/2024 Flat foot [pes planus] (acquired), right foot (ICD-10 - M21.41) 03/30/2024 Flat foot [pes planus] (acquired), left foot (ICD-10 - M21.42) Plan Of Treatment Next Appt Details Follow Up: 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, 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 Notes * Dov TILLMANOB: (68 yo M)Acc No.[id number]:03/30/2024 Progress Note Patient:?Hadley TILLMAN Provider:?Mahnaz Houston DPM :1955???Age:68 Y???Sex:Male Juan Pablo e:03/30/2024 Address:[address] [place] [address] [id number] Pcp:Samuel Francisco MD Subjective: * Chief Complaints: * ???Pcp-11/08 * HPI: ???Foot Pain:?Nature:??aching, pressure.?Location?Bottom, Forefoot, Right .?Onset/Cause:?unknown.?Course:?worse.?Aggrevated:?any pressure, standing, walking.?Treatments:?custom inserts as well as OTC inserts- which do improve condition, he has a previous pair of custom OTs over 10 years old and would like to get a new pair today.? * ROS:?General/Constitutional:?Nausea?denies.?Vomiting?denies.?Hunger Thirst?denies.?Loss appetite?denies.?Chills?denies.?Fatigue?denies.?Fever?denies.?Night Sweats?denies.?Unexplained weight [...] 2019Knee replacement 2020 * Hospitalization/Major Diagno stic Procedure:?Denies Past Hospitalization * Family History:?Mother: dece ased.?Father: unknown.? * Social History:?Tobacco Use:?Tobacco Use/Smoking?Are you a:?nonsmoker ?Additional Findings: Tobacco Non-User?Current non-smoker ?Tobacco use other than smoking?Are you an other tobacco user??No * Medications:?TakingVitamin B 12 Vitamin D hydroCHLOROthiazide [...] reviewed and reconciled with the patient * Allergies:?N.K.D.A.yes[Aller kaitlynn Verified] Objective: * Vitals:?Ht: 5ft6in, Wt:192, BMI:30.99, Shoe size: 9.5, BP:112/80mm Hg, Ht-cm: 167.64 cm, Wt-k.09 kg. * Examination: ???Neurological: ?SENSORY:?Neurological exam reveals intact sensorium, pain sensation normal, vibration sensation intact, pinprick sensation is normal in the lower extremities, Pt denies, anesthesia, burning, paresthesia, tingling, B/L.?TINEL'S COMPRESSION:?Negative tarsal tunnel, delbert pedis, and medial calcaneal nerves B/L.?BABINSKI REFLEX:?absent.?Neuroma Pain: ?PALPATION:?No interspace pain noted on palpation.?Vascular: ?DP PULSES(B):?2/4, B/L.?PT PULSES(B):?2/4, B/L.?CAPILLARY FILL TIME:?3 secs. per digit, B/L.?TROPHIC CONDITION-TEXTURE/ELASTICITY/TURGOR/HAIR GROWTH(B):?normal, B/L.?TEMPERTURE GRADIENT(C):?warm to cool, proximal to distal, B/L.?PIGMENTATION:?normal, B/L.?EDEMA(C):?no edema.?TELANGECTASIA:?absent.?VARICOSITIES:?absent.?Orthopedic: ?MUSCLE STRENGTH:?5/5 all groups in a symmetrical fashion , B/L.?GAIT ABNORMALITY:?pronated, abducted, B/L.?FOOT MORPHOLOGY:?Pes Planus structure, Semi-flexible, Pt is able to toe raise with heels inverted, Decreased Ankle joint dorsiflexion ROM, knee extended, Valgus Rearfoot visualized WB B/L.?BIOMECHANICAL EXAM:?RCSP L 5 deg valgus, RCSP R 5deg valgus STJ Neutral Position L 2 deg valgus, STJ Neutral Position R 2 deg valgus AJ DF Knee extended L 5 deg,, AJ DF Knee extended R 5 deg AJ DF Knee flexed L 10 deg,?AJ DF Knee flexed R 10 deg,.?General Examination: ?GENERAL APPEARANCE:?Reveals a pleasant, alert, well [...] Treatment: * Procedure Codes:? * Preventive Medicine:? ??Counseling:?Discussion:?-14: Office or other outpatient visit for the evaluation and management of an established patient, which required a medically appropriate history and/or examination and MODERATE level of DECISION MAKING for: 1 OR MORE CHRONIC PROBLEM(S) THATS WORSENING, 2 STABLE CHRONIC PROBLEMS, A NEWLY DIAGNOSED PROBLEM WITH UNCERTAIN PROGNOSIS, AN ACUTE COMPLICATED INJURY WITH MULTIPLE TREATMENT OPTIONS, OR AN ACUTE PROBLEM WITH ACCOMPANYING SYSTEMIC SYMPTOMS, THAT POSE(S) A MODERATE RISK OF MORBIDITY. THIS CONDITION MAY ALSO INCLUDE RX DRUG MANAGEMENT, OR A DECISON FOR MINOR SURGERY. The visit on the day of the [...] have encouraged the patient to call the office.?Orthotics:?I explained to the patient the benefits of OT use. I explained that orthoses are medically necessary to decrease the foot pain through proper mechanical control, support of their foot, Custom OT: A comprehensive biomechanical exam, gait analysis, and casting for custom orthoses was performed.? 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) * Images: * Sign off status: Completed true * Provider:?Mahnaz Houston DPM Date:?05/31/2023 Generated for Farzad patiño/Chente/eTyessismitting on:?06/22/2024 08:02 AM EST History and Physical Notes * HPI (History of Present Illness) Category Sub-Category Detail Notes Category Not es Foot Pain Aggrevated: any pressure, standing, walk ing Onset/Cause: unknown Course: worse Nature: aching, pressure Treatments: custom inserts as we ll as OTC inserts- which do improve condition, he has a previous pair of custom OTs over 10 years old and would like to get a new pair today Location Bottom, Forefoot, Ri ght Examination [...] abducted, B/L FOOT MORPHOLOGY: Pes Planus structure , Semi-flexible, Pt is able to toe raise with heels inverted, Decreased Ankle joint dorsiflexion ROM, knee extended, Valgus Rearfoot visualized WB B/L MUSCLE STRENGTH: 5/5 all groups in a symmetrical fashion , B/L BIOMECHANICAL EXAM: RCSP L 5 deg valgus, RCSP R 5deg valgus STJ Neutral Position L 2 deg valgus, STJ Neutral Position R 2 deg valgus AJ DF Knee extended L 5 deg,, AJ DF Knee extended R 5 deg AJ DF Knee flexed L 10 deg, AJ DF Knee flexed R 10 deg, General Examination GENERAL APPEARANCE: Reveals a pleasant, [...]
--- OUTSIDE RECORDS SUMMARY | 2024-06-22 08:02 | XMS_ITS | Patient Health Record ---
Author Organization Samuel Quiñones III, MD Address [address] [facility] [address] [place] [address] Care Team Providers Care Instrumentation Fitter Name Role Phone Samuel Francisco MD Primary Care Provider Unavail able Samuel Quiñones Unavailable [phone] Allergies Allergen (clinical drug ingredient) Drug/Non Drug Allergy documented on EMR Reaction Allergy Type Onset Date Status No Known Drug Allergy Unknown Drug Allergy Active Results Component Value Reference Range Notes Complete Blood Count Auto Di ff Reviewed date:11/11/2023 08:56:49 PM Interpretation: Performing Lab:[facility], [address] [place] [phone] Notes/Report: White Blood Count 7.4 4.8-10.8 X10*3/uL Red Blood Count 6.24 4.60-5.80 X10*6/uL Hemoglobin 15.7 14.0-18.0 g/dl Hematocrit 48.8 42.0-52.0 % Mean Corpuscular Volume 78.2 80.0-98.0 fL Mean Corpuscular Hemoglobin 25.2 27.0-33.0 pg Mean Corpuscular HGB Conc 32.2 31.0-36.0 g/dl Red Cell Distribution Width 16.8 11.0-16.0 % Platelet Count 281 160-400 X10*3/uL Mean Platelet Volume 11.7 9.4-12.4 fL Neutrophils Percent Auto 60.8 45-73 % Imm Gran Pct Auto 0.5 0.0-0.4 % Lymphocytes Percent Auto 25.4 20-40 % Monocytes Percent Auto 8.5 2-11 % Eosinophils Percent Auto 3.6 0-4 % Basophils Percent Auto 1.2 0-2 % NRBC Pct Auto 0.0 0.0-0.2 /100WBC Neutrophils Absolute Auto 4.5 2.0-8.3 x10*3/u L Imm Gran Abs Auto 0.04 0.00-0.03 X10*3/uL Lymphocytes Absolute Auto 1.9 1.2-4.9 X10*3/u L Monocytes Absolute Auto 0.6 0.1-1.2 X10*3/uL Eosinophils Absolute Auto 0.3 0.0-0.4 X10*3/u L Basophils Absolute Auto 0.1 0.0-0.2 X10*3/uL NRBC Abs Auto 0.000 0.0-0.012 X10*3/uL Comprehensive [place]. Panel Fa st Reviewed date:11/11/2023 08:56:49 PM Interpretation: Performing Lab:[address] [address] Notes/Report: Sodium 140 135-145 mmol/L Potassium 4.6 3.3-5.1 mmol/L Slight Hemoly sis Chloride 104 96-108 mmol/L Carbon Dioxide 26 22-29 mmol/L Anion Gap 15 12-20 Blood Urea Nitrogen 14 9-16 mg/dL Creatinine 1.15 0.5-1.4 mg/dL Estimated Glomerular Filt Rate > 60 NOTE: For -Azerbaij[place] individuals, multiply the result by 1.210. Chronic Kidney Disease: Estimated GFR < 60 mL/min/1.73m2 Severe Kidney Disease: Estimated GFR < 15 mL/min/1.73m2 Glucose Fasting 107 60-99 mg/dL A fasting glucose from 100-125 mg/dl is considered impaired (pre-diabetes). Calcium 9.6 8.4-10.2 mg/dL Bilirubin Total 0.6 0.0-1.0 mg/dL Aspartate Amino Transferase 31 5-37 U/L Slight Hemolysis Alanine Aminotransferase 27 0-40 U/L Total Protein 7.8 6.5-8.0 g/dL Albumin Level 4.4 3.5-5.0 g/dL Alkaline Phosphatase 90 39-117 U/L Lipid Panel Reviewed date:11/11/2023 08:56:49 PM Interpretation: Performing Lab:[facility], [address] [place] [phone] Notes/Report: Triglycerides 168 <150 mg/dL Desirable Triglyceride: less than 150 mg/dL Borderline High Triglyceride 150-199 mg/dL High Triglyceride: 200-499 mg/dL Very High Triglyceride: greater than or equal to 5OO mg/dL Cholesterol 245 <200 mg/dL Desirable Cholesterol: less than 200 mg/dL Borderline High Cholesterol: 200-239 mg/dL High Cholesterol: greater than 239 mg/dL LDL Cholesterol Calculated 153 <100 mg/dL Desirable LDL: less than 100 mg/dL Near Optimal/Above Optimal LDL: 110-129 mg/dL Borderline High LDL: 130-159 mg/dL High LDL: 160-189 mg/dL Very High LDL: greater than or equal to 190 mg/dL HDL Cholesterol 59 >40 mg/dL Desirable HDL: greater than 40 mg/dL Note: This HDL assay may give artificially low results in patients with liver disease. Prostate Specific Antigen Reviewed date:11/11/2023 08:56:49 PM Interpretation: Performing Lab:[facility], [address] [place] [phone] Notes/Report: Prostate Specific Antigen < 0.10 <0.05-4.0 ng/mL PSA methodology: Ng Alinity i Chemiluminescent Microparticle Immunoassay (CMIA) Vitamin B12 Reviewed date:11/11/2023 08:56:49 PM Interpretation: Performing Lab:[facility], [address] [place] [phone] Notes/Report: Vitamin B12 1109 200-900 pg/mL NORMAL 200-900 PG/ML INDETERMINATE 160-199 PG/ML DEFICIENT < 160 PG/ML Vitamin D 25-OH Total Reviewed date:11/11/2023 08:56:49 PM Interpretation: Performing Lab:[facility], [address] [place] [phone] Notes/Report: Vitamin D 25-OH Total 54.4 >30 ng/mL Health Based Reference Values* < 20 ng/mL Deficient 20-30 ng/mL Insufficient > 30 ng/mL Sufficient *Hima RUCKER. N Engl J Med. 2007;357:266-280 Care must be taken in interpreting Vitamin D results from different laboratories and methodologies. Published data demonstrated that results from patients undergoing hemodialysis may show a negative bias when tested with various automated 25-OH vitamin D assays when compared to LC-MS/MS. When testing samples from patients whose predominant form of Vitamin D is Vitamin D2, such as patients receiving Vitamin D2 supplementation, results that are subtherapeutic should be confirmed with another method such as LC-MS/MS. Complete Blood Count Auto Di ff Reviewed date:02/16/2024 09:44:54 AM Interpretation: Performing Lab:[facility], [address] [place] [address] Notes/Report: White Blood Count 5.8 4.8-10.8 X10*3/uL Red Blood Count 5.87 4.60-5.80 X10*6/uL Hemoglobin 14.8 14.0-18.0 g/dl Hematocrit 46.2 42.0-52.0 % Mean Corpuscular Volume 78.7 80.0-98.0 fL Mean Corpuscular Hemoglobin 25.2 27.0-33.0 pg Mean Corpuscular HGB Conc 32.0 31.0-36.0 g/dl Red Cell Distribution Width 15.7 11.0-16.0 % Platelet Count 276 160-400 X10*3/uL Mean Platelet Volume 11.5 9.4-12.4 fL Neutrophils Percent Auto 58.9 45-73 % Imm Gran Pct Auto 0.3 0.0-0.4 % Lymphocytes Percent Auto 28.2 20-40 % Monocytes Percent Auto 8.1 2-11 % Eosinophils Percent Auto 3.5 0-4 % Basophils Percent Auto 1.0 0-2 % NRBC Pct Auto 0.0 0.0-0.2 /100WBC Neutrophils Absolute Auto 3.4 2.0-8.3 x10*3/u L Imm Gran Abs Auto 0.02 0.00-0.03 X10*3/uL Lymphocytes Absolute Auto 1.6 1.2-4.9 X10*3/u L Monocytes Absolute Auto 0.5 0.1-1.2 X10*3/uL Eosinophils Absolute Auto 0.2 0.0-0.4 X10*3/u L Basophils Absolute Auto 0.1 0.0-0.2 X10*3/uL NRBC Abs Auto 0.000 0.0-0.012 X10*3/uL Comprehensive [place]. Panel Fa st Reviewed date:02/16/2024 09:44:54 AM Interpretation: Performing Lab:[facility], [address] [place] [address] Notes/Report: Sodium 143 135-145 mmol/L Potassium 4.2 3.3-5.1 mmol/L Chloride 107 96-108 mmol/L Carbon Dioxide 27 22-29 mmol/L Anion Gap 13 12-20 Blood Urea Nitrogen 16 9-16 mg/dL Creatinine 1.23 0.5-1.4 mg/dL Estimated Glomerular Filt Rate 59 NOTE: For -Azerbaij[place] individuals, multiply the result by 1.210. Chronic Kidney Disease: Estimated GFR < 60 mL/min/1.73m2 Severe Kidney Disease: Estimated GFR < 15 mL/min/1.73m2 Glucose Fasting 112 60-99 mg/dL A fasting glucose from 100-125 mg/dl is considered impaired (pre-diabetes). Calcium 9.4 8.4-10.2 mg/dL Bilirubin Total 0.5 0.0-1.0 mg/dL Aspartate Amino Transferase 29 5-37 U/L Alanine Aminotransferase 33 0-40 U/L Total Protein 7.0 6.5-8.0 g/dL Albumin Level 4.2 3.5-5.0 g/dL Alkaline Phosphatase 82 39-117 U/L Lipid Panel Reviewed date:02/16/2024 09:44:54 AM Interpretation: Performing Lab:[facility], [address] [place] [phone] Notes/Report: Triglycerides 82 <150 mg/dL Desirable Triglyceride: less than 150 mg/dL Borderline High Triglyceride 150-199 mg/dL High Triglyceride: 200-499 mg/dL Very High Triglyceride: greater than or equal to 5OO mg/dL Cholesterol 190 <200 mg/dL Desirable Cholesterol: less than 200 mg/dL Borderline High Cholesterol: 200-239 mg/dL High Cholesterol: greater than 239 mg/dL LDL Cholesterol Calculated 113 <100 mg/dL Desirable LDL: less than 100 mg/dL Near Optimal/Above Optimal LDL: 110-129 mg/dL Borderline High LDL: 130-159 mg/dL High LDL: 160-189 mg/dL Very High LDL: greater than or equal to 190 mg/dL HDL Cholesterol 61 >40 mg/dL Desirable HDL: greater than 40 mg/dL Note: This HDL assay may give artificially low results in patients with liver disease. Prostate Specific Antigen Reviewed date:02/16/2024 09:44:54 AM Interpretation: Performing Lab:[facility], [address] [place] [phone] Notes/Report: Prostate Specific Antigen < 0.10 <0.05-4.0 ng/mL PSA methodology: Ng Alinity i Chemiluminescent Microparticle Immunoassay (CMIA) Reason For Referral No Information Medications Medication [...] as directed Orally twice a day Active Vitamin B12 100 MCG as directed Orally Active Immunizations Vaccine Route Administration Date Status Comme nts COVID- 19 Vaccine Unknown 05/28/2020 Administered Social History Tobacco Use: Social History Observation [...] nk containing alcohol in the past year? 2 to 3 times a week (3 points) How many drinks did you have on a typical day when you were drinking in the past year? 1 or 2 drinks (0 point) How often did you have 6 or more drinks on one occasion in the past year? Never (0 point) Points 3 Interpretation Negative Problems Problem Type SNOMED Code ICD Code Onset Dates Problem Status W/U Status Risk Notes Problem 206978542 Overweight (BMI 25.0-29.9) (E66.3) Active confirmed He has gained 8 pounds since his last visit and his body mass index is elevated in the obese range. We reviewed his weight loss strategy. I recommended a reduction in weight of 1 pound per week. Problem 095056846155682 Obesity (BMI 30.0-34.9) (E66.9) Active confirmed He has lost 4 pounds in his body mass index is now 30.99. We have discussed his weight loss strategy and diet and nutrition. We made a plan to lose weight at a rate of one half of a pound per week. Problem 162660590 Prostate cancer (C61) Active confirmed He remains in remission. There is no sign of recurrent prostate cancer at this time. His PSA is not detectable. Problem 93653827 Thalassemia trait (D56.3) Active confirmed His hematocrit and mean cell volume and RBC are stable. No treatment is indicated. Problem 289444821 GERD without esophagitis (K21.9) Active confirmed His reflux is well controlled with medications. No change in his regimen was needed. Problem 721051338137036 History of diverticulitis (Z87.19) Active confirmed This was a solitary episode and has not been recurrent. He will be observed for this. Problem 557589130 Thrombophilia (D68.59) Active confirmed No change in his medications was made. He has had no episodes of bleeding or thrombosis. Problem 74878546 Vitamin D deficiency (E55.9) Active confirmed He was continued on his vitamin D. Problem 91754116 Right bundle branch block (I45.10) Active confirmed His heart sounds are normal today. His cardiac status will be monitored carefully. Problem 384871782143308 Primary osteoarthritis of right knee (M17.11) Active confirmed He recently had surgery to replace this joint. He is gradually recovering and doing well. Problem 604997763 History of asthma (Z87.09) Active confirmed He has had n o asthma recently. He will notify me if he doesn't use his inhaler as he has been instructed. Problem 405745947825487 Primary osteoarthritis of left knee (M17.12) Active confirmed He is going to have the opposite knee replaced several 2020 at [facility]. Problem 866316628 COVID-19 virus infection (U07.1) Active confirmed He has been determined to be positive. We discussed the significance of this at length. Problem 951046519930201 Acute deep vein thrombosis (DVT) (I82.409) Active confirmed He remains anticoagulated with apixaban without bleeding. Vital Signs Heart Rate 54 /min 02/16/2024 Temperature 97.2 degrees Fahrenheit 02/16/2024 Blood pressure diastolic 76 mm Hg 02/16/2024 Height 66 in 02/16/2024 Blood pressure systolic 135 mm Hg 02/16/2024 Weight 192 lbs 02/16/2024 BMI 30.99 kg/m2 02/16/2024 Encounters Encounter Location Date Provider Diagnosis Samuel Quiñones III, MD [address] [place] [address] [place] [address] 07/28/2023 Samuel Quiñones Prostate cancer C61 ; GERD without esophagitis K21.9 ; Right bundle branch block I45.10 ; Thrombophilia D68.59 ; Vitamin B 12 deficiency E53.8 ; Vitamin D deficiency E55.9 and Other obesity E66.8 Samuel Quiñones III, MD [address] [place] [address] [place] [address] 11/16/2023 Samuel Quiñones Prostate cancer C61 ; Obesity (BMI 30.0-34.9) E66.9 ; History of asthma Z87.09 ; GERD without esophagitis K21.9 ; Thrombophilia D68.59 ; Primary osteoarthritis of left knee M17.12 and Acute deep vein thrombosis (DVT) I82.409 Samuel Quiñones III, MD [address] [place] [address] [place] [address] 02/16/2024 Samuel Quiñones Prostate cancer C61 ; Obesity (BMI 30.0-34.9) E66.9 ; History of asthma Z87.09 ; GERD without esophagitis K21.9 ; Thalassemia trait D56.3 and Thrombophilia D68.59 Assessments Encounter Date Diagnosis (ICD Code) Assessment Notes Treat ment Notes Treatment Clinical Notes 07/28/2023 Prostate cancer (ICD-10 - C61) He remains in remission. There is no sign of recurrent prostate cancer at this time. His PSA will be checked periodically. 07/28/2023 GERD without esophagitis (ICD-10 - K21.9) His reflux is well controlled with medications. No change in his regimen was needed. 11/16/2023 Obesity (BMI 30.0-34.9) (ICD-10 - E66.9) He has lost 3 pounds but remains obese. He is trying to lose weight. We discussed diet and nutrition today. We made a plan to lose weight at a rate of one half of a pound per week. 11/16/2023 Prostate cancer (ICD-10 - C61) He remains in remission. There is no sign of recurrent prostate cancer at this time. His PSA will be checked periodically. 02/16/2024 Obesity (BMI 30.0-34.9) (ICD-10 - E66.9) He has lost 4 pounds in his body mass index is now 30.99. We have discussed his weight loss strategy and diet and nutrition. We made a plan to lose weight at a rate of one half of a pound per week. 02/16/2024 Prostate cancer (ICD-10 - C61) He remains in remission. There is no sign of recurrent prostate cancer at this time. His PSA is not detectable. 07/28/2023 Right bundle branch block (ICD-10 - I45.10) His heart sounds are normal today. His cardiac status will be monitored carefully. 11/16/2023 History of asthma (ICD-10 - Z87.09) He has had no asthma recently. He will notify me if he doesn't use his inhaler as he has been instructed. 02/16/2024 History of asthma (ICD-10 - Z87.09) He has had no asthma recently. He will notify me if he doesn't use his inhaler as he has been instructed. 07/28/2023 Thrombophilia (ICD-10 - D68.59) No change in his medications was made. He has had no episodes of bleeding or thrombosis. 11/16/2023 GERD without esophagitis (ICD-10 - K21.9) His reflux is well controlled with medications. No change in his regimen was needed. 02/16/2024 GERD without esophagitis (ICD-10 - K21.9) His reflux is well controlled with medications. No change in his regimen was needed. 07/28/2023 Vitamin B 12 deficiency (ICD-10 - E53.8) He was continued on his vitamin B12. 11/16/2023 Thrombophilia (ICD-10 - D68.59) No change in his medications was made. He has had no episodes of bleeding or thrombosis. 02/16/2024 Thalassemia trait (ICD-10 - D56.3) His hematocrit and mean cell volume and RBC are stable. No treatment is indicated. 07/28/2023 Vitamin D deficiency (ICD-10 - E55.9) He was continued on his vitamin D. 11/16/2023 Primary osteoarthritis of left knee (ICD-10 - M17.12) He is going to have the opposite knee replaced several 2020 at [facility]. 02/16/2024 Thrombophilia (ICD-10 - D68.59) No change in his medications was made. He has had no episodes of bleeding or thrombosis. 07/28/2023 Other obesity (ICD-10 - E66.8) He has gained 4 pounds in his body mass index is now 30. We discussed the caloric content of beer. We made a plan to lose weight at a rate of one half of a pound per week. 11/16/2023 Acute deep vein thrombosis (DVT) (ICD-10 - I82.409) He remains anticoagulated with apixaban without bleeding. Plan Of Treatment Pending Test Test Name Order Date PROFILE, FASTING (COMPREHENSIVE METABOLI C) 02/16/2024 PROFILE, FASTING (COMPREHENSIVE METABOLI C) 07/28/2023 PROFILE, FASTING (COMPREHENSIVE METABOLI C) 11/16/2023 PROFILE, FASTING (COMPREHENSIVE METABOLI C) 12/24/2022 PROFILE, RANDOM (COMPREHENSIVE METABOLIC ) 08/08/2019 PROFILE, RANDOM (COMPREHENSIVE METABOLIC ) 09/17/2021 PROFILE, RANDOM (COMPREHENSIVE METABOLIC ) 10/13/2020 PROFILE, RANDOM (COMPREHENSIVE METABOLIC ) 09/08/2022 PROFILE, RANDOM (COMPREHENSIVE METABOLIC ) 07/24/2019 PROFILE, RANDOM (COMPREHENSIVE METABOLIC ) 07/14/2020 PROFILE, RANDOM (COMPREHENSIVE METABOLIC ) 06/04/2021 PROFILE, RANDOM (COMPREHENSIVE METABOLIC ) 03/17/2022 PROFILE, RANDOM (COMPREHENSIVE METABOLIC ) 09/14/2018 PROFILE, RANDOM (COMPREHENSIVE METABOLIC ) 01/12/2021 LIPID PANEL 12/24/2022 LIPID PANEL 07/14/2020 B12 01/12/2021 PSA, TOTAL 07/14/2020 PSA, TOTAL 03/17/2022 PSA, TOTAL 11/16/2023 PSA, TOTAL 09/14/2018 PSA, TOTAL 08/08/2019 PSA, TOTAL 01/12/2021 PSA, TOTAL 12/24/2022 PSA, TOTAL 09/17/2021 PSA, TOTAL 10/13/2020 PSA, TOTAL 09/08/2022 PSA, TOTAL 07/24/2019 PSA, TOTAL 02/16/2024 PSA, TOTAL 06/04/2021 PSA, TOTAL 07/28/2023 CBC w DIFF 06/04/2021 CBC w DIFF 07/28/2023 CBC w DIFF 07/14/2020 CBC w DIFF 03/17/2022 CBC w DIFF 11/16/2023 CBC w DIFF 09/14/2018 CBC w DIFF 08/08/2019 CBC w DIFF 01/12/2021 CBC w DIFF 12/24/2022 CBC w DIFF 09/17/2021 CBC w DIFF 10/13/2020 CBC w DIFF 09/08/2022 CBC w DIFF 07/24/2019 HGB ELECTROPHORESIS 08/30/2011 CBC WITH AUTO DIFF 02/16/2024 Lipid Panel 02/16/2024 Lipid Panel 07/28/2023 Lipid Panel 11/16/2023 Vitamin B12 07/28/2023 Vitamin D 25-OH Total 07/28/2023 Next Appt Details Provider Name:Samuel Ramosrne, 08/13/2024 10:30:00 AM, [address] [place] [address] , [address], [place], [address], Insurance Providers Payer Name Payer Address Payer Phone Subscriber Number Group Number Insured Name Patient Relationship to Insured Coverage Start Date Coverage End Date MEDICARE NGS [address] [place] [address] [id number] Hadley Majano Self - patient is the insured [address] [place] [address] [id number] Hadley Majano Self - patient is the insured Medical (General) History Medical History History ICD Code DVT left popliteal vein thalassemia trait hematochezia 1999 high risk prostate cancver, [id number] GERD right bundle branch block history of asthma osteoarthritis 0ne episode of diverticulitis obesity nominal coronavirus 2019 infection July 2019 Surgical History Surgery Date(Month/Year) radical prostatectomy with s entinel nodes, [facility], Dr. Allen 10/05/2017 negative colonoscopy, [facility], Dr. Samuel Roe 05/2014 12 core biopsy of prostate, Dr. Max amaya 08/2017 tonsillectomy left knee surgery 11/2019 right knee surgery 05/2020 No history Hospitalization History Reason Date(Month/Year) No history
--- OUTSIDE RECORDS SUMMARY | 2024-06-22 08:02 | XMS_ITS ---
Author Organization Samuel Quiñones III, MD Address [address] [place] [address] [place] [address] Care Team Providers Care Plant Cytologist Name Role Phone Samuel Francisco MD Primary Care Provider Unavail able Samuel Quiñones Unavailable [phone] REASON FOR VISIT Follow Up Social History Sex Assigned At : Social History Observation Description Sex Assigned At Male Encounters Encounter Location Date Provider Diagnosis Samuel Quiñones III, MD [address] [place] [address] [place] [address] 11/03/2023 Samuel Quiñones Plan Of Treatment Next Appt Details Provider Name:Samuel Quiñones, 08/13/2024 10:30:00 AM, [address] [place] [address] [place], [address], Progress Notes * Hadley TILLMAN RDOB: [birth year] (68 yo M)Acc No.[id number]:11/03/2023 Progress Notes Patient:?Hadley TILLMAN Provider:?Samuel Quiñones MD :1955???Age:68 Y???Sex:Male Juan Pablo e:11/03/2023 Address:[address] [id number] Pcp:Samuel Francisco MD Subjective: * Chief Complaints: * ???1. Follow Up. * Medical History:? Objective: * Vitals:? Assessment: Plan: * Treatment: * Images: * The named appointment provid er may or may not be the originator of this progress note, and it is not deemed complete until electronically signed by the appointment provider. Sign off status: Pending * Provider:?Samuel Quiñones MD Date:?10/16 Generated for Farzad patiño/Chente/Lori on:?06/22/2024 08:02 AM EST
--- OUTSIDE RECORDS SUMMARY | 2024-06-22 08:03 | XMS_ITS | Patient Health Record ---
Author Organization [facility] Address [address] [place] [address] Care Team Providers Care Rn Cardiac Cath Name Role Phone Nolan (RETIRED) Samuel BARNES Primary Care Provid er Unavailable Samuel Roe Unavailable [phone] Reason For Referral No Information Medications Medication SIG (Take, Route, Fr equency, Duration) Notes Start Date End Date Status Suprep Bowel Prep 1 kit as directed Oral ly as directed for 1 dose 04/24/2014 Active Ibuprofen PRN Active Aspirin 325 MG 1 tablet Orally Once a day Active Problems Problem Type SNOMED Code ICD Code Onset Dates Problem Status W/U Status Risk Notes Problem Feces contents abnormal (688806117) Heme + stool (792.1) Active confirmed Plan Of Treatment Future Test Test Name Order Date COLONOSCOPY 04/23/2014 Next Appt Details Provider Name:Samuel Roe , 07/03/2024 09:30:00 AM, [address], [address], [place], [address], Insurance Providers Payer Name Payer Address Payer Phone Subscriber Number Group Number Insured Name Patient Relationship to Insured Coverage Start Date Coverage End Date [place] [address] [facility] [place] [address] [id number] RONY PINEDA Self - patient is the insured [facility] [address] [place] [phone] [id number] RONY PINEDA Self - patient is the insured Medical (General) History Medical History History ICD Code Denies [place],DM,CVA,Lung disease,renal dise ase DVT in left leg in 2010--saw Dr. Quiñones--treated with a temporary course of Coumadin Colonoscopy in 1999--reportedly negative except for hemorrhoids
[2024-06-22 08:25] LABS: MANUAL DIFF FLAG NO
[2024-06-22 09:03] LABS: Basophils Absolute Auto 0.1 X10*3/uL (0.0-0.2); Basophils Percent Auto 1.3 % (0-2); Eosinophils Absolute Auto 0.2 X10*3/uL (0.0-0.4); Eosinophils Percent Auto 3.8 % (0-4); Hematocrit 48.8 % (42.0-52.0); Hemoglobin 15.7 g/dl (14.0-18.0); Imm Gran Abs Auto 0.03 X10*3/uL (0.00-0.03); Imm Gran Pct Auto 0.5 % (0.0-0.4); Lymphocytes Absolute Auto 1.8 X10*3/uL (1.2-4.9); Lymphocytes Percent Auto 27.5 % (20-40); Mean Corpuscular HGB Conc 32.2 g/dl (31.0-36.0); Mean Corpuscular Hemoglobin 24.9 pg (27.0-33.0); Mean Corpuscular Volume 77.5 fL (80.0-98.0); Monocytes Absolute Auto 0.6 X10*3/uL (0.1-1.2); Monocytes Percent Auto 9.9 % (2-11); Neutrophils Absolute Auto 3.6 x10*3/uL (2.0-8.3); Platelet Count 296 X10*3/uL (160-400); Red Cell Distribution Width 16.5 % (11.0-16.0); White Blood Count 6.4 X10*3/uL (4.8-10.8)
[2024-06-22 09:34] LABS: Alanine Aminotransferase 32 U/L (0-40); Albumin Level 4.3 g/dL (3.5-5.0); Alkaline Phosphatase 98 U/L (39-117); Anion Gap 11 (12-20); Aspartate Amino Transferase 29 U/L (5-37); Bilirubin Total 0.4 mg/dL (0.0-1.0); Blood Urea Nitrogen 18 mg/dL (9-16); Calcium 9.6 mg/dL (8.4-10.2); Carbon Dioxide 29 mmol/L (22-29); Chloride 105 mmol/L (96-108); Cholesterol 204 mg/dL (<200); Estimated Glomerular Filt Rate > 60; Glucose Fasting 110 mg/dL (60-99); HDL Cholesterol 57 mg/dL (>40); LDL Cholesterol Calculated 129 mg/dL (<100); Sodium 141 mmol/L (135-145); Total Protein 7.8 g/dL (6.5-8.0); Triglycerides 91 mg/dL (<150)
[2024-06-22 09:58] LABS: Prostate Specific Antigen < 0.10 ng/mL (<0.05-4.0)
== END 2024-06-22 07:56 | disposition home or self-care (01) ==
LOC: HO.LAB 07:55
PROVIDERS: PCP Internal Medicine; Visit Provider Internal Medicine Medical Oncology
DX: C61 Malignant neoplasm of prostate (principal); Z12.5 Encounter for screening for malignant neoplasm of prostate; E66.9 Obesity, unspecified
CPT/HCPCS: 36415; 80053; 80061; 84153; 85025

== ENCOUNTER 2024-09-04 09:39 | Outpatient (AMB) | payer MEDICARE, OTHER, SELFPAY ==
--- NOTE | 2024-09-04 09:50 | A.OFFPC_ITS ---
Vital Signs 09/04/24 09:51 Height 5 ft 5.25 in Weight 190 lb BMI 31.4 BP 156/81 H Respiration 16 Pulse 58 Pulse Source Pulse Oximeter Temp 97.8 F Temp Source Temporal Artery Scan Pulse Oximetry (%) 99 Oxygen Delivery Method Room Air Intake Visit Reasons: follow up Bistro Attendant Required: No Accompanied by: Self / Same As Patient Allergies No Known Allergies [No Known Allergies*] Allergy (Verified 09/04/24 09:51) Tobacco use date assessed: 09/04/24 Fall risk assessment: No Falls in past year Last assessed Fall Risk: 09/04/24 Dental Screening Dental Screen Date: 09/04/24 Did you have a dental visit in the last 12 months?: Yes Did you have a dental problem in the last 6 months where you did not have access to dental care?: No Was dental information given to patient?: Patient has dentist [facility] Medical History Left leg DVT Prostate cancer Allergic rhinitis Asthma CHRISTA (obstructive sleep apnea) Surgical History History of colonoscopy (~06/07/14) Family History Father No problems noted. Mother CHF (congestive heart failure) Brother CHF (congestive heart failure) Obesity Sleep apnea Social History Housing: House Alcohol intake: current Alcohol intake frequency: 0-2 drinks per day Alcohol type: beer Patient Tobacco Use Status: Never used Tobacco service: No Current occupational status: retired Cognitive needs: No Hearing needs: No Vision needs: Yes (reading glasses) Questionnaire Thrive Questionnaire Date Thrive assessed: 09/04/24 I am a: Patient What is your living situation today?: I have a steady place to live Within the past 12 months, did the food you bought not last and you didn't have the money to get more?: Never true Within the past 12 months, did you worry whether your food would run out before you got money to buy more?: Never true Do you have trouble paying for medicines?: No Do you have trouble getting transportation to medical appointments?: No Do you have trouble paying your heating and electricity bill?: No Do you have trouble taking care of your child, family member or friend?: No Do you have trouble with day-to-day activities such as bathing, preparing meals, shopping, managing finances, etc.?: No Are you currently unemployed and looking for a job?: No Are you interested in more education?: No Please select the resources that you would like help with: None THRIVE Score: 0 AUDIT C Alcohol Use Questionnaire (AUDIT-C) 1. How often do you have a drink containing alcohol?: 4 or more times a week 2. How many drinks containing alcohol do you have on a typical day when you are drinking?: 1 or 2 3. How often do you have six or more drinks on one occasion?: Never Total Score: 4 DONTRELL-7 AMB Questionnaire DONTRELL-7 Date DONTRELL - 7 assessed: 09/04/24 Feeling nervous, anxious, or on edge: 0 = Not at all Not being able to stop or control worryin = Not at all Worrying too much about different things: 0 = Not at all Trouble relaxin = Not at all Being so restless that it is hard to sit still: 0 = Not at all Becoming easily annoyed or irritable: 0 = Not at all Feeling afraid as if something awful might happen: 0 = Not at all Total DONTRELL-7 score (0-4 normal; 5-9 mild; 10-14 moderate; 15-21 severe): 0 Source: Developed by Drs. Samuel Hagan, Alia Bergeron, Fredy Flood and colleagues, with an educational kwadwo from [employer]. Physical exam (Primary Care) Vital Signs: Last Vital Signs Temp 97.8 F 09/04/24 09:51 Pulse 58 09/04/24 09:51 Resp 16 09/04/24 09:51 BP 156/81 H 09/04/24 09:51 Pulse Ox 99 09/04/24 09:51 Oxygen Delivery Method Room Air 09/04/24 09:51 Care Plan Goal for BP management: rpt BP requested BMI result Body Mass Index 31.4 Tobacco/Smoking Status: Tobacco use Status Tobacco use date assessed 09/04/24 09/04/24 10:00 Patient Tobacco Use Status Never used Tobacco 09/04/24 10:00 Thrive Assessment: Date of Thrive Assessment Date Thrive assessed 09/04/24 09/04/24 10:00 Advance Care Planning discussion: Exists, not on file Date of discussion: 09/04/24 Who was present: Patient Forms completed: Health Care Proxy and MOLST Actual minutes spent: 5 Coding Level of Care Code Est Pt Level 4 (78486) Complex EM visit Add On G2211 Diagnoses Left leg DVT I82.402 Additional Codes Vital Signs *Quality* - Advance Care Planning discussion: Exists, not on file ([id number]) Assessment & Plan Assessment & Plan (1) Left leg DVT: Code(s): I82.402 - Acute embolism and thrombosis of unspecified deep veins of left lower extremity Category: Medical Plan: Continue medications at current dosage Plan History of Present Illness The patient is a 69-year-old male presenting with concerns of shoulder pain and thrombotic disorder management. Follow-up care for thrombotic disorder occurs biannually with Dr. EFE De La Cruz. Recent evaluations by the public relations director showed satisfactory heart health, alleviating his myocardial concerns. The patient suffers from nocturnal shoulder pain attributed to a documented rotator cuff tear. 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 While readings from some devices suggest hypertension, manual measurement shows controlled blood pressure levels. 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 - The patient enjoys watching college basketball and Olympic games but dislikes professional leagues. Review of Systems - Cardiovascular: Reports concern about heart health, but reassured by public relations director. - Musculoskeletal: Reports shoulder pain and arthritis in hands. - Vascular: Denies issues other than thrombotic disorder under specialist follow-up. Physical Exam General: Cooperative and healthy appearing Nutritional Appearance: Well nourished Orientation/consciousness: Patient oriented x3 Limitations: No limitations Head: Normal to inspection General: Appearance normal, both eyes and all related structures Neck: Normal visual inspection Chest: Normal palpation of entire chest wall Respiratory: Normal respiratory effort Neurology: Patient oriented x3 Results - Labs: Reports of good outcomes from recent cardiac evaluations. - Tests and Diagnostics: Suggests general validation from routine evaluations. Plan 1. Thrombotic Disorder - Continuous management under specialist guidance. 2. Concern Of Cardiac Issues - Received reassurance of cardiac health. 3. Musculoskeletal Pain Shoulder Pain - Orthopedic referral for alternative treatments like cortisone injections. 4. Rotator Cuff Tear - Presently managed non-surgically with therapeutic exercises. 5. Arthritis Of Hands - Continuation of physical therapy recommended. 6. Hypertension - Regular checks showing controlled blood pressure levels. Discussion Notes During our discussion, I addressed the patient's concern regarding his shoulder pain and history of thrombotic disorder. We reviewed his recent cardiac assessment, confirming he was reassured by the public relations director of stable heart function. I agreed to refer him to orthopedics for further evaluation of his shoulder pain and the possibility of obtaining cortisone injections. 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 His hypertension was reviewed, maria d mcgowan controlled blood pressure when measured correctly. Patient Instructions - Follow up with Dr. EFE De La Cruz for thrombotic disorder as scheduled. - Monitor shoulder pain and consider scheduling an orthopedic evaluation. - Continue physical therapy for pain management. - Use accurate devices for blood pressure monitoring. - Reschedule colonoscopy appointment with Dr. Roe. - Maintain healthy lifestyle and engage in regular physical activities. Orders: Referrals Orthopedics Referral M19.011 - Primary osteoarthritis, right shoulder, M19.012 - Primary osteoarthritis, left shoulder Gastroenterology Referral Z12.11 - Encounter for screening for malignant neoplasm of colon
[2024-09-04 09:51] VITALS: BP 156/81; PULSE 58; RESP 16; TEMP 36.6; O2SAT 99; BMI 31.4
== END 2024-09-04 10:24 | disposition home or self-care (01) ==
LOC: HO.HMCSH 09:39
PROVIDERS: PCP Internal Medicine; Visit Provider Internal Medicine
DX: I82.402 Acute embolism and thrombosis of unspecified deep veins of left lower extremity (principal); Z00.00 Encounter for general adult medical examination without abnormal findings

== ENCOUNTER → 2024-09-04 09:39 | Outpatient (BNVA) | payer MEDICARE, OTHER, SELFPAY | PROVIDERS: PCP Internal Medicine; Visit Provider Internal Medicine | DX: I82.402 Acute embolism and thrombosis of unspecified deep veins of left lower extremity (principal) | CPT/HCPCS: 99212 ==

== ENCOUNTER 2024-10-10 14:12 | Outpatient (AMB) | payer MEDICARE, OTHER, SELFPAY ==
--- NOTE | 2024-10-10 14:19 | MHC.PC.OV ---
Intake Visit Reasons: Sinus Infection Tube Dispatcher Required: No Allergies No Known Allergies (No Known Allergies*) Allergy (Verified 10/10/24 14:31) Medication List - Last Reconciled 10/10/24 by Ellen Vee PA-C albuterol sulfate 90 mcg/actuation 1 puff PO QID PRN apixaban (Eliquis) 5 mg PO BID 90 days cholecalciferol (vitamin D3) 25 mcg PO DAILY fluticasone propionate 50 mcg/actuation (Flonase Allergy Relief) 1 spray intranasal DAILY hydrochlorothiazide 50 mg PO QAM loratadine-pseudoephedrine 10-240 mg ER (Claritin-D 24 Hour) 1 tab PO DAILY montelukast 10 mg PO DAILY multivitamin 1 tab PO DAILY omeprazole 20 mg PO DAILY vitamin N73-bcafj acid 500-400 mcg 1 tab PO DAILY Tobacco use date assessed: 09/04/24 Dental Screening Dental Screen Date: 09/04/24 HPI Sinus Infection HPI Details The patient is a 69-year-old male presenting with symptoms suggestive of a sinus infection. He reports nasal congestion and mucus production, with green mucus being expelled from the nose and throat. He experiences nasal drip and has difficulty sleeping due to these symptoms. The patient denies having a fever. He has a history of severe COVID-19, which required hospitalization and resulted in a prolonged recovery period. 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 Mother CHF (congestive heart failure) Brother CHF (congestive heart failure) Obesity Sleep apnea Social History Housing: House Alcohol intake: current Alcohol intake frequency: 0-2 drinks per day Alcohol type: beer Patient Tobacco Use Status: Never used Tobacco service: No Current occupational status: retired Cognitive needs: No Hearing needs: No Vision needs: Yes (reading glasses) Questionnaire Thrive Questionnaire Date Thrive assessed: 09/04/24 DONTRELL-7 AMB Questionnaire DONTRELL-7 Date DONTRELL - 7 assessed: 09/04/24 Source: Developed by Drs. Samuel Hagan, Alia Bergeron, Fredy Flood and colleagues, with an educational kwadwo from [employer]. Review of Systems Const Details: - Respiratory: Reports nasal congestion and mucus production, denies fever Physical exam (Primary Care) Tobacco/Smoking Status: Tobacco use Status Tobacco use date assessed 09/04/24 10/10/24 14:20 Patient Tobacco Use Status Never used Tobacco 10/10/24 14:20 Thrive Assessment: Date of Thrive Assessment Date Thrive assessed 09/04/24 10/10/24 14:20 Telehealth Telehealth Telehealth Platform: Telephone Location of provider rendering services: practice address Location of patient: address on file Patient Identification confirmed using: Name, : Yes Telehealth method: voice only Patient verbally consented to treatment: Yes Patient verbally consented to billing insurance company: Yes Patient informed of any privacy concerns related to visit: Yes Minutes spent on Phone/Video with Pt.: 15 Coding Level of Care Code Est Pt Level 3 (62232) Diagnoses Sinusitis J32.9 Assessment & Plan Assessment & Plan (1) Sinusitis: Code(s): J32.9 - Chronic sinusitis, unspecified Category: Medical Plan: The patient will be prescribed Augmentin for the treatment of a possible sinus infection. He is advised to take the medication twice daily for 10 days and to use a probiotic to prevent diarrhea. The patient is instructed to monitor for symptoms such as fever, neck stiffness, rashes, difficulty swallowing, breathing, chest pain, or abdominal pain, and to seek medical attention if these occur. Plan Plan Patient was informed and verbally consented to the use of an ambient scribe for clinic note documentation during this visit. 1. Sinus Infection The patient will be prescribed Augmentin for the treatment of a possible sinus infection. He is advised to take the medication twice daily for 10 days and to use a probiotic to prevent diarrhea. The patient is instructed to monitor for symptoms such as fever, neck stiffness, rashes, difficulty swallowing, breathing, chest pain, or abdominal pain, and to seek medical attention if these occur. 2. History Of Covid-19 The patient has a history of severe COVID-19, which required hospitalization and resulted in a prolonged recovery period. No specific treatment plan is discussed for this condition during the visit. I discussed with the patient the likely diagnosis of a sinus infection and the plan to prescribe Augmentin. I advised him to take the medication twice daily for 10 days and to use a probiotic to prevent diarrhea. I instructed him to monitor for symptoms such as fever, neck stiffness, rashes, difficulty swallowing, breathing, chest pain, or abdominal pain, and to seek medical attention if these occur. Medications: New amoxicillin-pot clavulanate 875-125 mg 1 tab PO BID 20 tabs 0RF 10 days Patient Instructions: - Take Augmentin twice daily for 10 days. - Use a probiotic to prevent diarrhea. - Monitor for symptoms such as fever, neck stiffness, rashes, difficulty swallowing, breathing, chest pain, or abdominal pain, and seek medical attention if these occur.
== END 2024-10-10 14:38 | disposition home or self-care (01) ==
LOC: HO.HMCSH 14:12
PROVIDERS: PCP Internal Medicine; Visit Provider Physician Assistant Medical
DX: J32.9 Chronic sinusitis, unspecified (principal)

== ENCOUNTER → 2024-10-10 14:12 | Outpatient (BNVA) | payer MEDICARE, OTHER, SELFPAY | PROVIDERS: PCP Internal Medicine; Visit Provider Physician Assistant Medical | DX: J32.9 Chronic sinusitis, unspecified (principal); Z86.16 Personal history of COVID-19 | CPT/HCPCS: 99212 ==

== ENCOUNTER 2025-02-11 08:23 | Outpatient (REF) | payer MEDICARE, OTHER, SELFPAY ==
[2025-02-11 08:35] LABS: MANUAL DIFF FLAG NO
[2025-02-11 08:53] LABS: Hematocrit 48.0 % (42.0-52.0); Hemoglobin 15.4 g/dl (14.0-18.0); Imm Gran Abs Auto 0.02 X10*3/uL (0.00-0.03); Imm Gran Pct Auto 0.3 % (0.0-0.4); Lymphocytes Absolute Auto 1.8 X10*3/uL (1.2-4.9); Mean Corpuscular HGB Conc 32.1 g/dl (31.0-36.0); Mean Corpuscular Hemoglobin 25.2 pg (27.0-33.0); Mean Corpuscular Volume 78.7 fL (80.0-98.0); NRBC Abs Auto 0.000 X10*3/uL (0.0-0.012); NRBC Pct Auto 0.0 /100WBC (0.0-0.2); Platelet Count 329 X10*3/uL (160-400); Red Blood Count 6.10 X10*6/uL (4.60-5.80); White Blood Count 6.4 X10*3/uL (4.8-10.8)
[2025-02-11 09:21] LABS: Alanine Aminotransferase 39 U/L (0-40); Albumin Level 4.6 g/dL (3.5-5.0); Alkaline Phosphatase 89 U/L (39-117); Anion Gap 12 (12-20); Aspartate Amino Transferase 39 U/L (5-37); Blood Urea Nitrogen 16 mg/dL (9-16); Calcium 9.3 mg/dL (8.4-10.2); Carbon Dioxide 28 mmol/L (22-29); Chloride 105 mmol/L (96-108); Cholesterol 203 mg/dL (<200); Estimated Glomerular Filt Rate > 60; HDL Cholesterol 66 mg/dL (>40); Potassium 3.9 mmol/L (3.3-5.1); Sodium 141 mmol/L (135-145); Total Protein 7.5 g/dL (6.5-8.0); Triglycerides 66 mg/dL (<150)
[2025-02-11 09:42] LABS: Prostate Specific Antigen < 0.10 ng/mL (<0.05-4.0); Vitamin B12 1074 pg/mL (200-900)
== END 2025-02-11 08:24 | disposition home or self-care (01) ==
LOC: HO.LAB 08:23
PROVIDERS: PCP Internal Medicine; Visit Provider Internal Medicine Medical Oncology
DX: C61 Malignant neoplasm of prostate (principal); K21.9 Gastro-esophageal reflux disease without esophagitis; E55.9 Vitamin D deficiency, unspecified; D56.3 Thalassemia minor; D68.59 Other primary thrombophilia; E53.8 Deficiency of other specified B group vitamins; Z12.5 Encounter for screening for malignant neoplasm of prostate; Z13.6 Encounter for screening for cardiovascular disorders
CPT/HCPCS: 36415; 80053; 80061; 82306; 82607; 84153; 85025

== ENCOUNTER 2025-02-13 08:51 | Outpatient (AMB) | payer MEDICARE, OTHER, SELFPAY ==
--- NOTE | 2025-02-13 09:52 | AM.OFFVISNUR ---
Intake Visit Reasons: Flu vaccine Allergies No Known Allergies (No Known Allergies*) Allergy (Verified 10/10/24 14:31) Office Procedures Flu Questionnaire Does the patient have a severe egg allergy?: No Does the patient have severe life threatening allergies?: No Does the patient have a fever or illness today?: No Has the patient ever had Guillain-[place] Syndrome?: No Has the patient ever had any past reaction to a flu shot?: No Immunizations Fluarix [id number] (PF) 45 mcg (15 mcg x 3)/0.5 mL IM syringe Performing Provider: George Rodriguez MD [facility]forming [facility] Administered by: SANDY Mazariegos on 02/13/25 09:52 Dose Route Admin Location Dispensed Lot Number Expiration Date [facility] Farm Technician 0.5 mL IM Left Deltoid 0.5 mL [id number] 10/15/25 [id number] [facility] Given Date VIS Provided VIS Publication Date 02/13/25 Single Vaccine 24 Eligibility Eligibility Date Funding Source Not [facility] Eligible 02/13/25 Private Assessment & Plan Assessment & Plan Orders: Orders Influenza [id number] Immunization Today Z23 - Encounter for immunization Coding
== END 2025-02-13 09:20 | disposition home or self-care (01) ==
LOC: HO.HMCSH 08:51
PROVIDERS: PCP Internal Medicine; Visit Provider Internal Medicine
DX: Z23 Encounter for immunization (principal)

== ENCOUNTER → 2025-02-13 08:51 | Outpatient (BNVA) | payer MEDICARE, OTHER, SELFPAY | PROVIDERS: PCP Internal Medicine | DX: Z23 Encounter for immunization (principal) | CPT/HCPCS: 90471; 90656 ==

== ENCOUNTER 2025-03-05 09:29 | Outpatient (AMB) | payer MEDICARE, OTHER, SELFPAY ==
[2025-03-05 09:29] VITALS: BP 126/72; PULSE 60; RESP 14; TEMP 36.4; O2SAT 98; BMI 32.2
--- NOTE | 2025-03-05 09:29 | A.OFFPC_ITS ---
Vital Signs 03/05/25 09:29 Height 5 ft 5.25 in Weight 195 lb BMI 32.2 BP 126/72 Blood Pressure Location Rt brachial Position Sitting Respiration 14 Pulse 60 Pulse Source Pulse Oximeter Temp 97.5 F Temp Source Temporal Artery Scan Pulse Oximetry (%) 98 Oxygen Delivery Method Room Air Intake Visit Reasons: 6 month f/u Dental Prosthetist Required: No Accompanied by: Self / Same As Patient Allergies No Known Allergies (No Known Allergies*) Allergy (Verified 03/05/25 09:30) Tobacco use date assessed: 09/04/24 Dental Screening Dental Screen Date: 09/04/24 HPI HPI Comments History of Present Illness Details History of Present Illness - The patient is a 69-year-old male pres enting for a general health maintenance visit. - The patient has a history of prostate cancer and is followed by Dr. Aparicio and Dr. De La Cruz. - His PSA was recently checked by Dr. Toshia alves and was reported to be zero. - He experiences some urinary leakage as a sequela of his history. - He reports significant bilateral shoul mikki pain secondary to arthritis, which w as diagnosed via X-ray at an orthopedic clinic. - He received a cortisone injection in [place], which provided relief, but the pain has returned in the last 2-3 days, affecting his sleep. 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 - He was previously evaluated for left a rm numbness and was diagnosed with carpal tunnel syndrome. - His medical history is also notable fo r intermittent dyspnea, for which he uses an inhaler as needed, including this morning. - His medication list includes an inhale r, Eliquis, vitamin D, Flonase, hydrochlorothiazide, omeprazole, and Singulair, with no refills needed at this time. - Recent lab work from February 11 show ed good kidney function, baseline blood glucose, and slightly elevated cholesterol. - He has received his influenza vaccine, and plans to get the pneumonia and RSV vaccines. - A screening colonoscopy is due this ye ar and is scheduled for after . - He has a history of cataract surgery a nd denies any current visual disturbances. 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 - Functional Status: The patient drives, including at night, without any reported issues. Results - Labs (10/27): Kidney functions are goo d, sugars are at baseline, and cholesterol was slightly high. - Labs (recent): Dr. De La Cruz reported lab work was 'really good'. - PSA: Most recent level reported as 'al l zeros'. - Imaging (prior): Shoulder X-rays showe d significant arthritis and a hairline fracture. [facility] Medical History Sinusitis Left leg DVT Prostate cancer Allergic rhinitis Asthma CHRISTA (obstructive sleep apnea) Surgical History History of colonoscopy (~06/07/14) Family History Father No problems noted. Mother CHF (congestive heart failure) Brother CHF (congestive heart failure) Obesity Sleep apnea Social History Housing: House Alcohol intake: current Alcohol intake frequency: 0-2 drinks per day Alcohol type: beer Patient Tobacco Use Status: Never used Tobacco service: No Current occupational status: retired Cognitive needs: No Hearing needs: No Vision needs: Yes (reading glasses) Questionnaire PHQ-9 Over the last 2 weeks, how often have you been bothered by any of the following problems? 1. Little interest or pleasure in doing things: not at all 2. Feeling down, depressed, or hopeless: not at all 3. Trouble falling or staying asleep, or sleeping too much: not at all 4. Feeling tired or having little energy: not at all 5. Poor appetite or overeating: not at all 6. Feeling bad about yourself - or that you are a failure or have let yourself o r your family down: not at all 7. Trouble concentrating on things, such as reading the newspaper or watching television: not at all 8. Moving or speaking so slowly that other people could have noticed. Or the opposite - being so fidgety or restless that you have been moving around a lot more than usual: not at all 9. Thoughts that you would be better off or of hurting yourself in some way: not at all Total score: 0 Source: Developed by Drs. Samuel LAlia Hopper Kurt Kroenke and colleagues, with an educational kwadwo from [employer]. Thrive Questionnaire Date Thrive assessed: 09/04/24 I am a: Patient What is your living situation today?: I have a steady place to live Within the past 12 months, did the food you bought not last and you didn't have the money to get more?: Never true Within the past 12 months, did you worry whether your food would run out before you got money to buy more?: Never true Do you have trouble paying for medicines?: No Do you have trouble getting transportation to medical appointments?: No Do you have trouble paying your heating and electricity bill?: No Do you have trouble taking care of your child, family member or friend?: No Do you have trouble with day-to-day activities such as bathing, preparing meals, shopping, managing finances, etc.?: No Are you currently unemployed and looking for a job?: No Are you interested in more education?: No Please select the resources that you would like help with: None THRIVE Score: 0 AUDIT C Alcohol Use Questionnaire (AUDIT-C) 1. How often do you have a drink containing alcohol?: 4 or more times a week 2. How many drinks containing alcohol do you have on a typical day when you are drinking?: 1 or 2 3. How often do you have six or more drinks on one occasion?: Never Total Score: 4 DONTRELL-7 AMB Questionnaire DONTRELL-7 Date DONTRELL - 7 assessed: 09/04/24 Feeling nervous, anxious, or on edge: 0 = Not at all Not being able to stop or control worryin = Not at all Worrying too much about different things: 0 = Not at all Trouble relaxin = Not at all Being so restless that it is hard to sit still: 0 = Not at all Becoming easily annoyed or irritable: 0 = Not at all Feeling afraid as if something awful might happen: 0 = Not at all Total DONTRELL-7 score (0-4 normal; 5-9 mild; 10-14 moderate; 15-21 severe): 0 Source: Developed by Alia Thornton Kurt Kroenke and colleagues, with an educational kwadwo from [employer]. Review of Systems Narrative Review of Systems - General: Denies any current concerns. - HEENT: Reports good hearing. Denies visual halos or problems with night driving after cataract surgery. - Respiratory: Reports an episode of dyspnea this morning requiring an inhaler. - Gastrointestinal: Denies abdominal pain. - Genitourinary: Reports some urinary leakage. - Musculoskeletal: Reports severe shoulder pain for the last 2-3 days. - Neurological: Reports a history of numbness in the left arm. - Psychiatric: Reports poor sleep due to shoulder pain. Physical exam (Primary Care) Vital Signs: Last Vital Signs Temp 97.5 F 03/05/25 09:29 Pulse 60 03/05/25 09:29 Resp 14 03/05/25 09:29 BP 126/72 03/05/25 09:29 Pulse Ox 98 03/05/25 09:29 Oxygen Delivery Method Room Air 03/05/25 09:29 BMI result Body Mass Index 32.2 Tobacco/Smoking Status: Tobacco use Status Tobacco use date assessed 09/04/24 03/05/25 09:31 Patient Tobacco Use Status Never used Tobacco 03/05/25 09:31 PHQ-9: PHQ-9 Score PHQ-9: Total score 0 03/05/25 09:56 Thrive Assessment: Date of Thrive Assessment Date Thrive assessed 09/04/24 03/05/25 09:31 Narrative Physical Exam General: Appearance normal, both eyes and all related structures Nutritional Appearance: Well nourished Orientation/consciousness: Patient oriented x3 Limitations: No limitations Head: Normal to inspection Neck: Normal visual inspection Chest: Normal palpation of entire chest wall Respiratory: Normal respiratory effort Neurology: Patient oriented x3, noted numbness in left arm due to carpal tunnel syndrome Coding Level of Care Code Est Pt Level 4 (20632) Complex EM visit Add On G2211 Diagnoses Prostate cancer C61 Assessment & Plan Assessment & Plan (1) Prostate cancer: Code(s): C61 - Malignant neoplasm of prostate Category: Medical Plan Plan - Shoulder Arthritis: The patient was advised to contact his grounds restoration specialist's office to schedule another cortisone injection for recurrent pain. - Preventative Care: Patient to proceed with scheduled colonoscopy after [place]. - Immunizations: Patient will proceed with getting his pneumonia and RSV vaccinations. - Medications: Continue current medications as prescribed. No refills are needed at this time. - Follow-up: Patient to follow up in the clinic in 6 months. Discussion Notes I reviewed the patient's current health status and recent labs, which are largely stable. We discussed his current medication regimen, and he confirmed he does not need any refills today. I noted his upcoming colonoscopy and his plans to receive pneumonia and RSV immunizations. Regarding his recurrent shoulder pain, I advised him to follow up with his grounds restoration specialist for a repeat cortisone injection as they had previously offered. We agreed on a follow-up appointment in six months. Patient Instructions - Continue taking all your current medications as prescribed, including Eliquis, your inhaler, and others. - Please call your grounds restoration specialist's office to schedule another cortisone shot for your shoulder pain. - Go ahead with your plan to get your pneumonia and RSV shots. - Remember to complete your scheduled colonoscopy after [place]. - We will see you back in the office for a follow-up visit in six months.
== END 2025-03-05 10:30 | disposition home or self-care (01) ==
LOC: HO.HMCSH 09:29
PROVIDERS: PCP Internal Medicine; Visit Provider Internal Medicine
DX: C61 Malignant neoplasm of prostate (principal)

== ENCOUNTER → 2025-03-05 09:29 | Outpatient (BNVA) | payer MEDICARE, OTHER, SELFPAY | PROVIDERS: PCP Internal Medicine; Visit Provider Internal Medicine | DX: C61 Malignant neoplasm of prostate (principal) | CPT/HCPCS: 99212 ==

== ENCOUNTER 2025-04-15 06:11 | Day surgery (SDC) | payer MEDICARE, OTHER, SELFPAY ==
--- NOTE | 2025-04-09 13:24 | HO.ANESPROP2 ---
Documented by User: Tahmina Mahajan NP 04/09/25 13:26 HPI - Anesthesia Eval Consult details Narrative: 69 yr old male for upper endoscopy, colonoscopy H/O DVT: on eliquis CHRISTA Asthma PMFSH Active Problems Active Problems: All Active Problems (Updated 10/10/24 @ 14:47 by Ellen Vee PA-C) Sinusitis (Acute) Left leg DVT (Acute) Prostate cancer (Acute) Allergic rhinitis (Acute) Asthma (Acute) CHRISTA (obstructive sleep apnea) (Acute) Past Medical History Medical History (Updated 04/10/25 @ 09:46 by Autumn Washington RN) GERD (gastroesophageal reflux disease) Sinusitis Left leg DVT Prostate cancer Allergic rhinitis Asthma CHRISTA (obstructive sleep apnea) Family History Family History Father No problems noted. Mother CHF (congestive heart failure) Brother CHF (congestive heart failure) Obesity Sleep apnea Surgical History Surgical History (Updated 04/10/25 @ 09:46 by Autumn Washington RN) History of total bilateral knee replacement Hx of prostatectomy History of colonoscopy (~06/07/14) Social History Social History Housing: House Alcohol intake: current Alcohol intake frequency: 0-2 drinks per day Alcohol type: beer Patient Tobacco Use Status: Never used Tobacco Use of substances other than those prescribed or required for medical reasons: No Advance Directives: No Advance Directives Information Provided: Yes service: No Current occupational status: retired Cognitive needs: No Hearing needs: No Vision needs: Yes (reading glasses) Meds Allergies Allergy/AdvReac Type Severity Reaction Status Date / Time No Known Allergies (No Known Allergy Verified 04/15/25 06:42 Allergies*) Home Medications ?Medication ?Instructions ?Recorded ?Confirmed ?Last Taken ?Type cholecalciferol (vitamin D3) 25 25 mcg PO DAILY 09/10/20 04/15/25 Unknown History mcg (1,000 unit) capsule multivitamin 1 tab PO DAILY 09/27/22 04/15/25 Unknown History vitamin B12 500 mcg-folic acid 400 1 tab PO DAILY 09/04/24 04/15/25 Unknown History mcg tablet cetirizine 10 mg tablet 10 mg PO DAILY 04/10/25 04/15/25 Unknown History fluticasone propionate 115 2 puff inhalation BID 04/10/25 04/15/25 Unknown History mcg-salmeterol 21 mcg/actuation HFA inhaler (Advair HFA) Exam Pertinent Lab Results Pertinent Lab Results: Laboratory Tests 02/11/25 08:34 WBC 6.4 RBC 6.10 H Hgb 15.4 Hct 48.0 Plt Count 329 Sodium 141 Potassium 3.9 BUN 16 Creatinine 1.14 Assessment and Plan Assessment Anesthesia Assessment: Chart Reviewed Documented by User: Sunny Barriga MD 04/15/25 07:39 PMFSH Past Medical History Medical History (Updated 04/10/25 @ 09:46 by Autumn Washington RN) GERD (gastroesophageal reflux disease) Sinusitis Left leg DVT Prostate cancer Allergic rhinitis Asthma CHRISTA (obstructive sleep apnea) Family History Family History Father No problems noted. Mother CHF (congestive heart failure) Brother CHF (congestive heart failure) Obesity Sleep apnea Family history of problems with anesthesia: No Surgical History Surgical History (Updated 04/10/25 @ 09:46 by Autumn Washington RN) History of total bilateral knee replacement Hx of prostatectomy History of colonoscopy (~06/07/14) History of Problems with Anesthesia: No Social History Social History Housing: House Alcohol intake: current Alcohol intake frequency: 0-2 drinks per day Alcohol type: beer Patient Tobacco Use Status: Never used Tobacco Use of substances other than those prescribed or required for medical reasons: No Advance Directives: No Advance Directives Information Provided: Yes service: No Current occupational status: retired Cognitive needs: No Hearing needs: No Vision needs: Yes (reading glasses) Meds Allergies Allergy/AdvReac Type Severity Reaction Status Date / Time No Known Allergies (No Known Allergy Verified 04/15/25 06:42 Allergies*) Home Medications ?Medication ?Instructions ?Recorded ?Confirmed ?Last Taken ?Type cholecalciferol (vitamin D3) 25 25 mcg PO DAILY 09/10/20 04/15/25 Unknown History mcg (1,000 unit) capsule multivitamin 1 tab PO DAILY 09/27/22 04/15/25 Unknown History vitamin B12 500 mcg-folic acid 400 1 tab PO DAILY 09/04/24 04/15/25 Unknown History mcg tablet cetirizine 10 mg tablet 10 mg PO DAILY 04/10/25 04/15/25 Unknown History fluticasone propionate 115 2 puff inhalation BID 04/10/25 04/15/25 Unknown History mcg-salmeterol 21 mcg/actuation HFA inhaler (Advair HFA) Exam Airway Mallampati Class: IV TM Dist: >3cm Neck ROM: Full Loose/Missing/Broken Teeth: No Heart: RRR Lungs: CTA Assessment and Plan Assessment Anesthesia Assessment: Anesthesia Plan Discussed and Chart Reviewed Final Anesthetic Review Family History of Problems with Anesthesia: No History of Problems with Anesthesia: No NPO: Yes ASA Class: III Final Preanesthetic Review: No Changes in Pt Med Stat, Meds/Allgs Chart Reviewed, Consent Obtained/Reviewed and Anes Risks/Benef Reviewed Patient Risk: Low Procedure Risk: Low Anesthetic Plan Anesthetic Plan: MAC: and TIVA Disposition: Standard PACU
[2025-04-10 09:44] VITALS: BMI 30.6
[2025-04-15 06:43] VITALS: BMI 28.8
[2025-04-15 06:59] VITALS: BP 147/82; PULSE 62; RESP 18; TEMP 36.2; O2SAT 97
[2025-04-15] MEDS: Lactated Ringers 1,000 ML 100 ML IVCONT (06:59)
[2025-04-15 08:40] VITALS: BP 102/59; PULSE 69; RESP 20; TEMP 36.2; O2SAT 100
--- NOTE | 2025-04-15 08:45 | PM.OP ---
Brief Operative Note Date of Service: 04/15/25 Pre-op diagnosis: GERD, Screening Post-op diagnosis: other (Hiatal hernia, XRT-proctitis with telangiectasias) Procedure: EGD with bx, Colonoscopy to the cecum and TI Surgeon: Samuel Roe MD Anesthesia: MAC Was an Box Lining Machine Feeder used for this Procedure?: No Estimated blood loss (mL): 2.0 Pathology: other (A. EG Junction at 38cm) Condition: stable Disposition: PACU
[2025-04-15 08:55] VITALS: BP 109/61; PULSE 58; RESP 16; O2SAT 97
--- NOTE | 2025-04-15 08:56 | OP_ITS ---
DATE OF SERVICE: 04/15/2025 SURGEON: Samuel Roe MD INDICATIONS: The patient presents for evaluation of gastroesophageal reflux and colorectal cancer screening. Full consent obtained from him for both procedures, including risks of bleeding and perforation. PREOPERATIVE DIAGNOSIS: Gastroesophageal reflux and colorectal cancer screening. POSTOPERATIVE DIAGNOSIS: Gastroesophageal reflux and colorectal cancer screening, small hiatal hernia, diverticulosis, internal hemorrhoids, and mild changes of radiation proctitis. PROCEDURE PERFORMED: Esophagogastroduodenoscopy with biopsies, and colonoscopy to the cecum and terminal ileum. ESTIMATED BLOOD LOSS: COMPLICATIONS: ANESTHESIA: Monitored anesthesia care. ASSISTANTS: SPECIMENS: DESCRIPTION OF PROCEDURE: The patient was placed in the left lateral decubitus position. The Olympus video gastroscope was passed in the posterior oropharynx and upper esophagus under direct vision. The scope was passed slowly into the distal esophagus. The gastroesophageal junction appeared at 38 cm. There was some slight irregularity consistent with reflux but no definitive evidence of Bur[place]on esophagus. There was no esophagitis. The scope entered the stomach. There was a small hiatal hernia. The scope was advanced to pylorus and duodenum was cannulated to the descending portion. The duodenum including the bulb appeared normal without mass or ulceration. The scope was withdrawn back in the stomach. The gastric antrum and body appeared normal with good peristalsis. The scope was retroflexed visualizing the proximal stomach carefully which appeared normal, without any sign of mass or ulceration. The scope was straightened and withdrawn back to the esophagus. Biopsies were obtained at the EG junction at 38 cm. Proximal to that the esophageal mucosa appeared normal. The scope was withdrawn from the patient. He was turned around for the colonoscopy. The digital rectal exam revealed no abnormalities. The Olympus video pediatric colonoscope was entered into the rectum advanced easily to the cecum. Once in the cecum, I did identify normal-appearing cecal pouch with appendiceal orifice and a normal-appearing ileocecal valve. The terminal ileum was cannulated and appeared normal. The scope was withdrawn back in the colon. The entire cecum and ileocecal valve appeared normal. The scope was slowly withdrawn assessing all mucosal surfaces carefully. Preparation was excellent. I did not visualize any sign of polyps, colitis, nor angiodysplasia. There was a mild amount of sigmoid diverticulosis. In the rectum, scope was retroflexed visualizing some small internal hemorrhoids as well as some friability and some small telangiectasias. He also had some telangiectasias in the more proximal rectum. The area was not particularly friable and there was no sign of any active bleeding. The scope was withdrawn from the patient. He tolerated both procedures well and was returned to the recovery area in stable condition. IMPRESSION: 1. Hiatal hernia, gastroesophageal reflux. 2. Diverticulosis. 3. Internal hemorrhoids. 4. Mild changes of radiation proctitis. PLAN: The results of biopsy will be checked. He was advised to continue his Prilosec once or twice a day for symptomatic relief of his reflux. I would recommend a repeat colonoscopy in 10 years for further screening. At this point, his radiation proctitis changes is not particularly symptomatic and therefore I would not recommend any type of treatment for that. He will see me again as needed. He was advised to resume his Eliquis by tomorrow. He was advised to stay off all aspirin and NSAIDs while on Eliquis. MD RADHIKA Jacobo/SID / [id number] JOSE ANGEL
[2025-04-15 09:07] VITALS: BP 141/71; PULSE 58; RESP 16; TEMP 36.2; O2SAT 99
[2025-04-15 09:20] VITALS: BP 142/70; PULSE 62; RESP 16; TEMP 36.2; O2SAT 99
== END 2025-04-15 09:51 | disposition home or self-care (01) ==
PROVIDERS: PCP Internal Medicine; Visit Provider Internal Medicine
PROC: (CPT 43239; principal; 2025-04-15 07:30)
DX: Z12.11 Encounter for screening for malignant neoplasm of colon (principal); K62.7 Radiation proctitis; Y84.2 Radiological procedure and radiotherapy as the cause of abnormal reaction of the patient, or of later complication, without mention of misadventure at the time of the procedure; K57.30 Diverticulosis of large intestine without perforation or abscess without bleeding; K44.9 Diaphragmatic hernia without obstruction or gangrene; K64.8 Other hemorrhoids; K21.00 Gastro-esophageal reflux disease with esophagitis, without bleeding
CPT/HCPCS: 43239; G0121; 88305; 88313; J2250; J2704